=== PATIENT | female | born 1965 | race Caucasian/White ===

== ENCOUNTER → 2017-11-23 | Outpatient (CLI) | payer BC, OTHER ==
--- NOTE | 2017-11-27 07:51 | MM ---
Reason for exam: screening (asymptomatic). Last mammogram was performed 1 year and 6 months ago. History: Patient is postmenopausal. Family history of breast cancer in maternal grandmother at age 45 and breast cancer in maternal aunt at age 56. Benign stereotactic core biopsy of the left breast, March 18, 2005. Excisional biopsy of the right breast, 2003. Reductions of both breasts, March 1987. Core biopsy of the left breast. Took hormonal contraceptives for 5 years beginning at age 15. Physical Findings: A clinical breast exam by your physician is recommended on an annual basis and results should be correlated with mammographic findings. MG 3D Screening Mammo W/Cad Bilateral CC and MLO view(s) were taken. Prior study comparison: May 12, 2016, bilateral MG screening mammo w CAD. October 15, 2014, bilateral MG screening mammo w CAD. There are scattered fibroglandular densities. No significant changes when compared with prior studies. ASSESSMENT: Benign, BI-RAD 2 RECOMMENDATION: Routine screening mammogram of both breasts in 1 year.
== END | disposition home or self-care (01) ==
LOC: RADMAMWWP 16:16
PROVIDERS: ATTEND Family Medicine
DX: Z12.31 Encounter for screening mammogram for malignant neoplasm of breast (principal)
CPT/HCPCS: 77063; 77067

== ENCOUNTER → 2019-02-27 | Outpatient (CLI) | payer BC, OTHER ==
--- NOTE | 2019-03-01 10:06 | MM ---
Reason for exam: screening (asymptomatic). Last mammogram was performed 1 year and 3 months ago. History: Patient is postmenopausal. Family history of breast cancer in maternal grandmother at age 45 and breast cancer in maternal aunt at age 56. Benign stereotactic core biopsy of the left breast, March 18, 2005. Excisional biopsy of the right breast, 2003. Reductions of both breasts, March 1987. Core biopsy of the left breast. Took hormonal contraceptives for 5 years beginning at age 15. Physical Findings: A clinical breast exam by your physician is recommended on an annual basis and results should be correlated with mammographic findings. MG 3D Screening Mammo W/Cad Bilateral CC and MLO view(s) were taken. Prior study comparison: November 23, 2017, bilateral MG 3d screening mammo w/cad. May 12, 2016, bilateral MG screening mammo w CAD. The breast tissue is heterogeneously dense. This may lower the sensitivity of mammography. Previous mammotome biopsy in the left breast. No significant changes when compared with prior studies. ASSESSMENT: Benign, BI-RAD 2 RECOMMENDATION: Routine screening mammogram of both breasts in 1 year.
== END ==
LOC: RADMAMWWP 13:59
PROVIDERS: ATTEND Obstetrics & Gynecology
DX: Z12.31 Encounter for screening mammogram for malignant neoplasm of breast (principal)
CPT/HCPCS: 77063; 77067

== ENCOUNTER → 2019-03-28 | Outpatient (CLI) | payer BC ==
--- NOTE | 2019-03-28 11:27 | CT ---
EXAMINATION TYPE: CT abdomen pelvis w con DATE OF EXAM: 03/28/2019 COMPARISON: 07/23/2016 HISTORY: 53-year-old female Diverticulitis TECHNIQUE: Contiguous axial scanning of the abdomen and pelvis following administration of 100 ml Iso juan josé 300 IV contrast. Delayed images through the kidneys and coronal/sagittal reconstructions perform ed. CT DLP: 1475 mGycm Automated exposure control for dose reduction was used. FINDINGS: Heart normal size without pericardial effusion. Lung bases clear without pleural effusion. Scattered small hepatic cysts measuring up to 1.1 cm are redemonstrated. Portal venous system is funez nt. No biliary ductal dilatation. Gallbladder, adrenal glands, spleen, and pancreas appear within normal limits. Bilateral renal cysts measuring up to 4.1 cm on the right and 1.6 cm on the left. Symmetric uptake and excretion of contras t from both kidneys. No dilated small bowel, free fluid, or free air. No mesenteric or retroperitoneal lymphadenopathy. Normal appendix. Oral contrast progressed to the hepatic flexure of the colon. There is moderate stoo l burden. Sigmoid diverticulosis without pericolonic inflammatory change redundant sigmoid colon. Bladder is urine distended. Multiple pelvic phleboliths. Uterus and both ovaries are visualized. No a bnormal fluid collection in the pelvis or pelvic lymphadenopathy seen. Bones: Mild degenerative changes at the hips and SI joints. Disc/endplate degenerative change L5-S1 and facet arthropathy lower lumbar spine. IMPRESSION: 1. SIGMOID DIVERTICULOSIS WITHOUT EVIDENCE FOR ACUTE DIVERTICULITIS. 2. MODERATE STOOL BURDEN. 3. SCATTERED SMALL HEPATIC CYSTS AND BILATERAL RENAL CYSTS REDEMONSTRATED MEASURING UP TO 4.1 CM.
== END | disposition home or self-care (01) ==
LOC: RADCTMAIN 09:04
PROVIDERS: ATTEND Surgery Plastic and Reconstructive Surgery
DX: K57.30 Diverticulosis of large intestine without perforation or abscess without bleeding (principal); N28.1 Cyst of kidney, acquired; K76.89 Other specified diseases of liver; R19.5 Other fecal abnormalities; Z88.1 Allergy status to other antibiotic agents; Z88.2 Allergy status to sulfonamides
CPT/HCPCS: 74177; Q9967

== ENCOUNTER 2019-05-02 08:57 | Day surgery (SDC) | payer BC ==
[2019-04-26 15:15] VITALS: BMI 31.3
--- NOTE | 2019-05-02 07:58 | P.GSHP ---
History of Present Illness H&P Date: 05/02/19 CHIEF COMPLAINT: GERD HISTORY OF PRESENT ILLNESS: The patient is a 53-year-old female who presents reports gastroesophageal reflux disease. Upper endoscopy was offered for further evaluation and management. PAST MEDICAL HISTORY: Please see list. PAST SURGICAL HISTORY: Please see list. MEDICATIONS: Please see list. ALLERGIES: Please see list. SOCIAL HISTORY: No illicit drug use FAMILY HISTORY: No reports of Crohn disease or ulcerative colitis. REVIEW OF ORGAN SYSTEMS: CONSTITUTIONAL: No reports of fevers or chills. GI: Denies any blood in stools or constipation. PHYSICAL EXAM: VITAL SIGNS: Stable GENERAL: Well-developed and pleasant in no acute distress. HEENT: No scleral icterus. Extraocular movements grossly intact. Moist buccal mucosa. NECK: Supple without lymphadenopathy. CHEST: Unlabored respirations. Equal bilateral excursions. CARDIOVASCULAR: Regular rate and rhythm. Distal 2+ pulses. ABDOMEN: Soft, nondistended. MUSCULOSKELETAL: No clubbing, cyanosis, or edema. ASSESSMENT: 1. Gastroesophageal reflux disease PLAN: 1. Recommend proceeding with an upper endoscopy Past Medical History Past Medical History: Eye Disorder, Sleep Apnea/CPAP/BIPAP Additional Past Medical History / Comment(s): Abd. PAIN, HX OF ENDOMETRIOSIS AND HEMORRHOIDS, GLAUCOMA AND CATARACTS. NO LONGER USES CPAP MACHINE. History of Any Multi-Drug Resistant Organisms: None Reported Past Surgical History: Breast Surgery, Tonsillectomy, Tubal Ligation, Uterine Ablation Additional Past Surgical History / Comment(s): breast reduction, hemorroidectomy, carpal tunnel, eye surgery Past Anesthesia/Blood Transfusion Reactions: No Reported Reaction Additional Past Anesthesia/Blood Transfusion Reaction / Comment(s): . Past Psychological History: Anxiety, Depression Additional Psychological History / Comment(s): ON CELEXA FOR POST-MENOPAUSE ISSUES. Smoking Status: Never smoker Past Alcohol Use History: Rare Past Drug Use History: None Reported - Past Family History Father Family Medical History: Cancer Additional Family Medical History / Comment(s): BLADDER CA. Sister(s) Family Medical History: Cancer Additional Family Medical History / Comment(s): NON-HODGKINS LYMPHOMA AND LARGE B CELL. Medications and Allergies Home Medications Medication Instructions Recorded Confirmed Type Citalopram Hydrobromide [CeleXA] 20 mg PO DAILY 09/02/16 04/26/19 History Timolol 0.25% Ophth Soln [Timoptic 1 drop BOTH EYES DAILY 04/10/19 04/26/19 History 0.25% Ophth Soln] Allergies Allergy/AdvReac Type Severity Reaction Status Date / Time levofloxacin [From Levaquin] Allergy Rash/Hives, Verified 04/26/19 14:59 palpations
[~2019-05-02 08:57] MED LIST: LACTATED RINGERS 1,000 ML IV SCH; LIDOCAINE 1% 20 ML VIAL (10MG/ML) FOR IV START INTRADERMA PRN
[2019-05-02 09:18] VITALS: RESP 16; TEMP 97
[2019-05-02] MEDS ORDERED: LIDOCAINE 1% INJ 10MG/ML (20 ML MDV) ONE (10:33)
[2019-05-02] MEDS ORDERED: PROPOFOL 10 MG/ML 20 ML VIAL IV ONE (10:33)
--- NOTE | 2019-05-02 11:16 | P.PCN ---
Date of Procedure: 05/02/19 Description of Procedure: PREOPERATIVE DIAGNOSIS: Gastroesophageal reflux disease. POSTOPERATIVE DIAGNOSIS: Gastritis. Gastroesophageal reflux disease with erosive esophagitis Diaphragmatic hiatal hernia Duodenitis Gastric polyps, benign OPERATION: Esophagogastroduodenoscopy with biopsies along antrum, duodenum, distal esophagus SURGEON: Malou Tipton MD ANESTHESIA: MAC. INDICATIONS: The patient is a 53-year-old female who presents with a history of reflux disease. Benefits and risks of the procedure were described. Informed consent was obtained. DESCRIPTION: The patient was brought into the endoscopy suite and laid in the left lateral decubitus position. An Olympus gastroscope was passed along the posterior oropharynx down to the distal esophagus where the squamocolumnar junction was encountered at 38 cm from the incisors. The stomach was entered and no bile reflux was found. Additional findings are listed below. Biopsies with cold forceps were obtained of the antrum. The first through third portion of the duodenum was examined and with duodenitis. Retroflexion of the scope confirmed Hill grade 3 lower esophageal valve. The squamocolumnar junction demonstrated LA grade B erosive esophagitis. The stomach was desufflated. The patient tolerated the procedure well. FINDINGS: Squamocolumnar junction 38 cm from the incisors. Diaphragmatic hiatus at 40 cm. Hiatal hernia, 2 cm Hill grade 3 lower esophageal valve. LA grade B erosive esophagitis with biopsies obtained Active duodenitis with biopsies obtained Chronic gastritis with biopsies obtained Gastric polyps, benign fundus RECOMMENDATIONS: Upper endoscopy as needed. Start proton pump inhibitor Plan - Discharge Summary New Discharge Prescriptions: No Action Citalopram Hydrobromide [CeleXA] 20 mg PO DAILY Timolol 0.25% Ophth Soln [Timoptic 0.25% Ophth Soln] 1 drop BOTH EYES DAILY Discharge Medication List Citalopram Hydrobromide [CeleXA] 20 mg PO DAILY 09/02/16 [History] Timolol 0.25% Ophth Soln [Timoptic 0.25% Ophth Soln] 1 drop BOTH EYES DAILY 04/10/19 [History]
[2019-05-02 11:46] VITALS: BP 123/76; PULSE 66
== END 2019-05-02 11:28 | disposition home or self-care (01) ==
LOC: ORWHC2ENDO 08:57
PROVIDERS: ATTEND Surgery Plastic and Reconstructive Surgery
DX: K21.0 Gastro-esophageal reflux disease with esophagitis (principal); K29.50 Unspecified chronic gastritis without bleeding; K29.80 Duodenitis without bleeding; K31.7 Polyp of stomach and duodenum; K44.9 Diaphragmatic hernia without obstruction or gangrene; Z80.52 Family history of malignant neoplasm of bladder; Z80.7 Family history of other malignant neoplasms of lymphoid, hematopoietic and related tissues; Z79.899 Other long term (current) drug therapy; Z88.1 Allergy status to other antibiotic agents
CPT/HCPCS: 88305; 43239; J2001; J2704

== ENCOUNTER → 2019-05-09 | Outpatient (CLI) | payer BC ==
[2019-05-09 13:25] LABS: HGB 13.2 gm/dL (11.4-16.0); MCH 28.7 pg (25.0-35.0); MCHC 32.9 g/dL (31.0-37.0); MCV 87.2 fL (80.0-100.0); Mean Platelet Volume 8.5; Platelet Count 209 k/uL (150-450); RBC 4.58 m/uL (3.80-5.40); RDW 14.2 % (11.5-15.5); WBC 6.7 k/uL (3.8-10.6)
[2019-05-09 13:34] LABS: Albumin 4.5 g/dL (3.5-5.0); Calcium 9.8 mg/dL (8.4-10.2); Potassium 4.9 mmol/L (3.5-5.1); Total Protein 7.4 g/dL (6.3-8.2)
== END | disposition home or self-care (01) ==
LOC: LABWHC1 12:29 → LABPAT 12:29
PROVIDERS: ATTEND Surgery Plastic and Reconstructive Surgery
DX: K63.5 Polyp of colon (principal); D12.0 Benign neoplasm of cecum
CPT/HCPCS: 80053; 85027

== ENCOUNTER 2019-05-13 08:23 | Inpatient (IN) | payer BC ==
[2019-05-08 15:53] VITALS: BMI 31.3
[~2019-05-13 08:23] MED LIST changes: +ALVIMOPAN 12 MG CAPSULE PO ONE; +Antibiotics per Pharmacy 1 EACH MISC MISCELLANE PRN; +DEXAMETHASONE SOD PHOSPHATE 10 MG/ML 1 ML VIAL IV ONE; +HEPARIN SODIUM,PORCINE 5,000 UNIT/ML 1 ML VIAL SQ ONE; -LACTATED RINGERS 1,000 ML IV SCH; +ONDANSETRON 4 MG/2 ML VIAL IVP ONE; +ONDANSETRON 4 MG/2 ML VIAL IVP PRN; +SCOPOLAMINE 1.5MG/72HR PATCH TRANSDERM ONE; +metroNIDAZOLE-NS PMX 500 MG in SALINE 1 100ML.BAG IVPB ONE
[2019-05-13] MEDS: LACTATED RINGERS 1,000 ML IV SCH (09:41)
--- NOTE | 2019-05-13 09:48 | P.GSHP ---
History of Present Illness H&P Date: 05/13/19 CHIEF COMPLAINT: History of cecal adenoma, recurrent unresectable HISTORY OF PRESENT ILLNESS: The patient is a 53-year-old female who comes in with recurrent unresectable cecal adenoma. She now presents for cecal resection/right hemicolectomy. PAST MEDICAL HISTORY: Please see list. PAST SURGICAL HISTORY: Please see list. MEDICATIONS: Please see list. ALLERGIES: Please see list. SOCIAL HISTORY: No illicit drug use FAMILY HISTORY: No reports of Crohn disease or ulcerative colitis. REVIEW OF ORGAN SYSTEMS: CONSTITUTIONAL: Denies any fever or chills. HEENT: Denies any trouble with vision or nosebleeds. No difficulty swallowing. She is hard of hearing. LYMPHATIC: The patient denies any lumps and bumps around the neck. ENDOCRINE: Denies any thyroid disorders. Has blood sugar glucose intolerance. RESPIRATORY: Denies pneumonia. Denies any troubles with breathing or dyspnea on exertion. CARDIOVASCULAR: Denies any chest pain, palpitations, or recent heart attacks. GASTROINTESTINAL: Has constipation GENITOURINARY: Has increased urinary frequency. MUSCULOSKELETAL: Has back pain, stiffness, joint arthritis. NEUROLOGIC: Denies any numbness or tingling along the distal extremities. No seizure disorders or headaches. PSYCHIATRIC: Denies depression or suidical ideation. HEMATOLOGIC: Denies any abnormal bleeding or bruising. PHYSICAL EXAM: VITAL SIGNS: Stable GENERAL: Well-developed pleasant in no acute distress. HEENT: No scleral icterus. Extraocular movements grossly intact. Moist buccal mucosa. He is hard of hearing. NECK: Supple without lymphadenopathy. CHEST: Unlabored respirations. Equal bilateral excursions. CARDIOVASCULAR: Regular rate and rhythm. Distal 2+ pulses. ABDOMEN: Soft, nontender, nondistended. MUSCULOSKELETAL: No clubbing, cyanosis, or edema. NERUO: Regular 2-12 grossly intact. PSYCH: Alert and oriented to person place and time. ASSESSMENT: 1. History of recurrent unresectable cecal adenoma PLAN: 1. Benefits and risks of surgical right hemicolectomy. Robotic-assisted approach was also described. 2. She has completed an enhanced colon recovery program. 3. DVT prophylaxis. 4. Antibiotic prophylaxis. Past Medical History Past Medical History: Dementia, Eye Disorder, GERD/Reflux, Sleep Apnea/CPAP/BIPAP Additional Past Medical History / Comment(s): colon mass,hiatal hernia,duodenitis,gastritis,diverticulosisHX OF ENDOMETRIOSIS, HEMORRHOIDS, GLAUCOMA AND CATARACTS. NO LONGER USES CPAP MACHINE. History of Any Multi-Drug Resistant Organisms: None Reported Past Surgical History: Breast Surgery, Tonsillectomy, Tubal Ligation, Uterine Ablation Additional Past Surgical History / Comment(s): breast reduction, hemorroidectomy, carpal tunnel, eye surgery Past Anesthesia/Blood Transfusion Reactions: No Reported Reaction Additional Past Anesthesia/Blood Transfusion Reaction / Comment(s): NO PROBLEMS WITH PRIOR AUTOLOGEOUS BLOOD Smoking Status: Never smoker - Past Family History Father Family Medical History: Cancer Additional Family Medical History / Comment(s): BLADDER CA. Sister(s) Family Medical History: Cancer Additional Family Medical History / Comment(s): NON-HODGKINS LYMPHOMA AND LARGE B CELL. Medications and Allergies Home Medications Medication Instructions Recorded Confirmed Type Citalopram Hydrobromide [CeleXA] 20 mg PO QAM 09/02/16 05/08/19 History Timolol 0.25% Ophth Soln [Timoptic 1 drop BOTH EYES QAM 04/10/19 05/08/19 History 0.25% Ophth Soln] Omeprazole 40 mg PO QAM 05/08/19 05/08/19 History Allergies Allergy/AdvReac Type Severity Reaction Status Date / Time levofloxacin [From Levaquin] Allergy Rash/Hives, Verified 05/13/19 09:44 palpations Surgical - Exam Vital Signs Temp Pulse Resp BP Pulse Ox 98.0 F 69 18 123/62 96 05/13/19 09:18 05/13/19 09:18 05/13/19 09:18 05/13/19 09:18 05/13/19 09:18
[2019-05-13] MEDS ORDERED: MIDAZOLAM (PF) 2 MG/2 ML VIAL IVP ONE (09:49)
[2019-05-13 09:52] LABS: Basophils % (A) 1 %; Eosinophils # (A) 0.1 k/uL (0-0.7); Eosinophils % (A) 3 %; HCT 38.4 % (34.0-46.0); Lymphocytes # (A) 1.4 k/uL (1.0-4.8); Lymphocytes % (A) 30 %; MCHC 33.8 g/dL (31.0-37.0); MCV 85.6 fL (80.0-100.0); Mean Platelet Volume 8.4; Monocytes # (A) 0.2 k/uL (0-1.0); Monocytes % (A) 5 %; Neutrophils # (A) 2.7 k/uL (1.3-7.7); Neutrophils % (A) 60 %; Platelet Count 213 k/uL (150-450); RBC 4.48 m/uL (3.80-5.40); RDW 15.4 % (11.5-15.5); WBC 4.6 k/uL (3.8-10.6)
[2019-05-13 10:01] LABS: Albumin 4.7 g/dL (3.5-5.0); Calcium 9.4 mg/dL (8.4-10.2); Potassium 3.9 mmol/L (3.5-5.1); Total Bilirubin 0.9 mg/dL (0.2-1.3); Total Protein 7.8 g/dL (6.3-8.2)
[2019-05-13] MEDS ORDERED: FAMOTIDINE 20 MG/2 ML VIAL IVP ONE (10:03)
[2019-05-13] MEDS ORDERED: fentaNYL (PF) 50 MCG/ML 2 ML AMP ONE (10:57)
[2019-05-13] MEDS ORDERED: PROPOFOL 10 MG/ML 20 ML VIAL IV ONE (10:57)
[2019-05-13] MEDS ORDERED: ROCURONIUM BROMIDE 10 MG/ML 10 ML VIAL IV ONE (10:57)
[2019-05-13] MEDS ORDERED: LIDOCAINE 1% INJ 10MG/ML (20 ML MDV) ONE (10:57)
[2019-05-13] MEDS ORDERED: SUCCINYLCHOLINE CHLORIDE 100 MG/5 ML SYR IV ONE (10:57)
[2019-05-13] MEDS ORDERED: GLYCOPYRROLATE 0.2 MG/ML 2 ML VIAL ONE (10:57)
[2019-05-13] MEDS ORDERED: NEOSTIGMINE 1 MG/ML 10 ML VIAL ONE (10:57)
[2019-05-13] MEDS ORDERED: MIDAZOLAM 2 MG/2 ML VIAL ONE (10:57)
[2019-05-13] MEDS ORDERED: NALOXONE 0.4 MG/ML 1 ML VIAL IV PRN (11:07)
[2019-05-13] MEDS ORDERED: ROPIVACAINE 250 MG, HYDROMORPHONE (PF) 5 MG in SODIUM CHLORIDE 0.9% 200 ML EPIDURAL PRN (11:15)
[2019-05-13] MEDS ORDERED: BUPIVACAIN-EPI 0.25%-1:200,000 30 ML VIAL SQ ONE (11:28)
--- NOTE | 2019-05-13 13:51 | P.OP ---
Date of Procedure: 05/13/19 Description of Procedure: SURGEON: DILLON TIDWELL MD Preoperative Diagnosis: 1. Recurrent cecal adenoma unresectable by endoscopic techniques 2. Depressive disorder 3. Gastroesophageal reflux disease 4. Hiatal hernia 5. Obstructive sleep apnea 6. History of endometriosis 7. Sigmoid diverticulosis Postoperative Diagnosis: 1. Recurrent cecal adenoma unresectable by endoscopic techniques 2. Depressive disorder 3. Gastroesophageal reflux disease 4. Hiatal hernia 5. Obstructive sleep apnea 6. History of endometriosis 7. Sigmoid diverticulosis 8. Cecal bascule Procedure(s) Performed: Robot-assisted daVinci Xi laparoscopic right hemicolectomy Anesthesia: GETA, local, epidural Estimated Blood Loss (ml): 5 Pathology: other (Right colon) Condition: stable SPECIMENS REMOVED: terminal ileum, appendix, and right colon en bloc. COMPLICATIONS: None. Disposition: floor Operative Findings: 1. Highly redundant right colon with resection performed for cecal adenoma INDICATIONS: The patient is a 54-year-old female with personal history of recurrent cecal adenoma. Surgical intervention with colon resection was described in detail. Benefits and risks, including infection, open surgery possibility for additional surgery was discussed at length. Informed consent was obtained. All questions of the patient and family were answered. DESCRIPTION: Earlier the patient had undergone a bowel prep using the enhanced colon recovery program. An epidural was placed per anesthesia. The patient was transferred to the operating room and placed in supine position. After general anesthetic, a eastman catheter was placed. The abdomen was then prepped and draped in standard sterile fashion as Ioban was placed along the abdomen to minimize any contamination of skin floor. After a timeout protocol was performed, attention was then brought to the left upper quadrant whereby a 0 degree 5 mm laparoscopic trocar entry was performed. The abdominal cavity was entered and insufflated to 15 mmHg pressure, which was tolerated well. Diagnostic laparoscopy demonstrated no injury to bowel, viscera or mesentery. No metastatic or peritoneal deposits were identified. The liver was unremarkable. Next a robotic 12-mm trocar was placed along the right lateral abdominal wall, 15-cm superior from the pelvis. An 8 mm port was placed along the right upper quadrant and another 8-mm port along the epigastrium. Another 8 mm port was placed along the left lower quadrant. Ports were placed 8 cm apart from each other including 15-20 cm away from the target anatomy of the right pelvis. The patient was then placed in Trendelenburg position, at least 16. The robotic da Lizbeth XI system was primed and docked from the left side of the patient. Using atraumatic graspers and vessel sealer, the robotic system was docked and primed as described. Instruments were interchanged by the anesthetic assistant including ho ok cautery, needle charter bus driver, robotic stapler and vessel sealer. Next, attention was brought to identify the cecum. A stay suture using 0 silk was placed along the anterior serosa of the ascending colon including along the terminal ileum. The appendix was identified and used as a handle during the case. The terminal ileum and ascending colon mesentery was mobilized using a vessel sealer whereby the colon was marked and tagged. Using robot stapler 60 mm blue load, the distal ileum was divided 5 cm proximal to the ileocecal valve. The mesentery of the ascending colon was mobilized towards the midline using a vessel sealer. Next, the ascending colon was divided using the robotic stapler 60 mm green loads. The rest of the colon mesentery was mobilized using vessel sealer including using blunt dissection. The vascular pedicle of the ileocolic artery was controlled using a vessel sealer. The proximal colon and distal ileum was brought in a side to side isoperistaltic anastomotic fashion after placing interrupted sutures along the proposed brionna- lumen using 3-0 silk. A colotomy and enterotomy was prepared along both limbs along the antimesenteric border. Next, 60 mm blue stapler loads were fired to create the brionna-lumen. The brionna-lumen was reapproximated using 3-0 silk followed by 45 mm green load for closure of the enterostomy. All needles were removed from the abdominal cavity. The robot was undocked. I re-scrubbed into the case. Via the left upper quadrant, the right colon was removed using a 15-mm Endo Catch bag after widening the skin incision to 3-cm. All sponges were removed from the abdominal cavity. No contamination had occurred throughout this portion of the case. The fascial defect was oversewn using 0 Vicryl and Lizzie's including Phil-Sheng. Next all pneumoperitoneum was evacuated from the abdominal cavity. The 8-mm trocar sites were reapproximated using 4-0 Monocryl in an interrupted subcuticular fashion. Local anesthetic was infiltrated to all wounds for postop analgesia. All incisions were also cleansed with diluted hydrogen peroxide. An Optifoam surgical dressing was placed over the left upper quadrant incision of the colon extraction site. Exofin glue was applied to the rest of the skin incisions. The patient had tolerated the procedure well. The patient was extubated successfully. Intraoperative photos were reviewed with the patient's family who were overall pleased with the level of care. The patient was transferred to the postanesthesia care unit in stable condition.
[2019-05-13] MEDS ORDERED: SODIUM CHLORIDE 0.9% 1,000 ML with POTASSIUM CHLORIDE 40 MEQ IV SCH ×2 (14:00)
[2019-05-13] MEDS: HYDROmorphone 0.5 MG/0.5 ML SYRINGE IVP PRN ×2 (14:07→14:19)
[2019-05-13] MEDS: KETOROLAC 30 MG/ML 1 ML VIAL IVP SCH ×2 (15:36→18:12)
[2019-05-13] MEDS: 0.9% NACL WITH KCL 40 MEQ/L 1,000 ML IV SCH (16:01)
[2019-05-13] MEDS: ONDANSETRON 4 MG/2 ML VIAL IVP SCH ×2 (16:01→20:35)
[2019-05-13] MEDS: METOCLOPRAMIDE 5 MG/ML 2 ML VIAL IVP SCH (18:13)
[2019-05-13] MEDS: metroNIDAZOLE-NS PMX 500 MG in SALINE 1 100ML.BAG IVPB SCH (18:13)
[2019-05-13] MEDS: HEPARIN SODIUM,PORCINE 5,000 UNIT/ML 1 ML VIAL SQ SCH (20:36)
[2019-05-13] MEDS: FAMOTIDINE 20 MG/2 ML VIAL IV SCH (20:36)
[2019-05-14] MEDS: KETOROLAC 30 MG/ML 1 ML VIAL IVP SCH ×5 (00:16→23:21)
[2019-05-14] MEDS: METOCLOPRAMIDE 5 MG/ML 2 ML VIAL IVP SCH ×5 (01:01→23:20)
[2019-05-14] MEDS: ONDANSETRON 4 MG/2 ML VIAL IVP SCH ×5 (01:01→23:21)
[2019-05-14] MEDS: 0.9% NACL WITH KCL 40 MEQ/L 1,000 ML IV SCH ×3 (01:02→20:11)
[2019-05-14] MEDS: metroNIDAZOLE-NS PMX 500 MG in SALINE 1 100ML.BAG IVPB SCH ×3 (01:45→12:54)
[2019-05-14] MEDS: LACTATED RINGERS 1,000 ML IV SCH (04:56)
[2019-05-14 07:10] LABS: Basophils % (A) 0 %; Eosinophils % (A) 0 %; HGB 11.5 gm/dL (11.4-16.0); Lymphocytes # (A) 0.9 k/uL (1.0-4.8); Lymphocytes % (A) 10 %; MCHC 32.8 g/dL (31.0-37.0); MCV 88.3 fL (80.0-100.0); Monocytes # (A) 0.4 k/uL (0-1.0); Monocytes % (A) 5 %; Neutrophils % (A) 85 %; Platelet Count 170 k/uL (150-450); RBC 3.96 m/uL (3.80-5.40); RDW 14.1 % (11.5-15.5); WBC 9.4 k/uL (3.8-10.6)
[2019-05-14 07:30] LABS: Calcium 8.2 mg/dL (8.4-10.2); Potassium 3.9 mmol/L (3.5-5.1)
--- NOTE | 2019-05-14 08:25 | P.PN ---
Progress Note - Text 05/14/2019 84-year-old female status post coronary resection by Dr. Tipton. Patient has an epidural for postop pain control with the solution running at 5 mL an hour and a VAS of 1. She has little bit of numbness in her left hip so I asked the nurse or decrease the rate to 4 mL an hour. Plan to continue epidural infusion rate at 4 mL an hour
[2019-05-14] MEDS: FAMOTIDINE 20 MG/2 ML VIAL IV SCH ×2 (08:38→20:11)
[2019-05-14] MEDS: ALVIMOPAN 12 MG CAPSULE PO SCH ×2 (08:38→20:11)
[2019-05-14] MEDS: TIMOLOL 0.25% OPHTH DROPS 5 ML BTL BOTH EYES SCH (08:39)
[2019-05-14] MEDS ORDERED: SODIUM CHLORIDE 0.9% 1,000 ML IV ONE (08:43)
--- NOTE | 2019-05-14 12:57 | P.PN ---
<Myriam Marin [place] - Last Filed: 05/14/19 12:51> Subjective Progress Note Date: 05/14/19 CHIEF COMPLAINT: recurrent cecal adenoma HISTORY OF PRESENT ILLNESS: Patient is status post robotic right hemicolectomy secondary to cecal adenoma. POD #1. Patient reports pain is tolerable this morning. epidural infusing at 4 mL an hour. denies passing flatus. tolerating clear liquid diet. Dahl catheter with jorge urine. IV fluids infusing at 100 mL an hour. Systolic blood pressure in the 90s this morning. WBC 9.4. Hemoglobin 11.5. PHYSICAL EXAM: VITAL SIGNS: Reviewed GENERAL: Well-developed in no acute distress. HEENT: No sclera icterus. Extraocular movements grossly intact. Moist buccal mucosa. Head is atraumatic, normocephalic. Hears conversational speech. No nasal drainage. NECK: Supple without lymphadenopathy. CHEST: Non-labored respirations and equal bilateral excursions. CARDIOVASCULAR: Regular rate with regular rhythm. Palpable 2+ radial pulses. ABDOMEN: Soft. Nondistended. Surgical incision sites clean dry and intact without erythema or drainage. Hypoactive bowel sounds. MUSCULOSKELETAL: No clubbing, cyanosis or edema. NEUROLOGIC: No focal or lateralizing signs. Cranial nerves II through XII grossly intact. PSYCH: Appropriate affect. Alert and oriented to person, place and time. SKIN: Well perfused. Good skin turgor. ASSESSMENT: 1. Cecal adenoma, s/p robotic right hemicolectomy PLAN: 1. Continue epidural for pain control 2. Continue Dahl catheter 3. Continue IV fluids at 100 mL an hour. 1 L normal saline bolus secondary to jorge urine 4. Continue clear liquid diet until patient begins passing flatus 5. Incentive spirometer 10 times an hour while awake 5. Activity as tolerated. Patient encouraged to be out of bed and ambulatory Nurse practitioner note has been reviewed by physician. Signing provider agrees with the documented findings, assessment, and plan of care. Objective - Vital Signs Vital signs: Vital Signs Temp 98.4 F 05/14/19 07:00 Pulse 93 05/14/19 07:00 Resp 16 05/14/19 07:00 BP 90/57 05/14/19 07:00 Pulse Ox 96 05/14/19 07:00 Intake & Output 05/13/19 05/14/19 05/14/19 18:59 06:59 18:59 Intake Total 1400 34.7 Output Total 5 700 Balance 1395 -665.3 Intake: IV 1400 Intake, IV Titration 34.7 Amount Ropivacaine 250 mg 34.7 Hydromorphone (Pf) 5 mg In Sodium Chloride 0.9% 200 ml @ Per Protocol EPIDURAL .Q0M PRN Rx#: [id number] Output: Urine 700 Estimated Blood Loss 5 Other: Voiding Method Indwelling Catheter Indwelling Catheter Indwelling Catheter - Labs CBC & Chem 7: 05/14/19 06:35 05/14/19 06:35 Labs: Abnormal Lab Results - Last 24 Hours (Table) 05/14/19 05/14/19 Range/Units 06:35 06:35 Neutrophils # 8.0 H (1.3-7.7) k/uL Lymphocytes # 0.9 L (1.0-4.8) k/uL Carbon Dioxide 31 H (22-30) mmol/L Calcium 8.2 L (8.4-10.2) mg/dL <Malou Tipton N - Last Filed: 05/16/19 18:33> Objective - Vital Signs Vital signs: Vital Signs Temp 98 F 05/15/19 15:00 Pulse 71 05/15/19 15:00 Resp 12 05/15/19 15:00 BP 146/83 05/15/19 15:00 Pulse Ox 97 05/15/19 15:00 Intake & Output 05/15/19 05/16/19 05/16/19 18:59 06:59 18:59 Intake Total 2000 Output Total 2800 Balance -800 Intake: IV 800 0.9% NaCl with KCl 40 Meq 800 /l 1,000 ml @ 100 mls/hr IV .[facility] Rx#: [id number] Oral 1200 Output: Urine 2800 Uretheral (Dahl) 2500 Other: Voiding Method Toilet - Labs CBC & Chem 7: 05/15/19 06:57 05/15/19 06:57
[2019-05-14] MEDS: HEPARIN SODIUM,PORCINE 5,000 UNIT/ML 1 ML VIAL SQ SCH ×2 (15:38→20:11)
[2019-05-15] MEDS: LACTATED RINGERS 1,000 ML IV SCH (05:49)
[2019-05-15] MEDS: KETOROLAC 30 MG/ML 1 ML VIAL IVP SCH (05:49)
[2019-05-15] MEDS: ONDANSETRON 4 MG/2 ML VIAL IVP SCH ×3 (05:50→18:03)
[2019-05-15] MEDS: METOCLOPRAMIDE 5 MG/ML 2 ML VIAL IVP SCH ×3 (05:50→18:02)
[2019-05-15] MEDS: 0.9% NACL WITH KCL 40 MEQ/L 1,000 ML IV SCH ×2 (05:51→12:17)
[2019-05-15 07:41] LABS: Basophils % (A) 0 %; Eosinophils # (A) 0.1 k/uL (0-0.7); Eosinophils % (A) 1 %; HCT 33.4 % (34.0-46.0); HGB 10.8 gm/dL (11.4-16.0); Lymphocytes # (A) 1.2 k/uL (1.0-4.8); Lymphocytes % (A) 21 %; MCH 28.6 pg (25.0-35.0); MCHC 32.3 g/dL (31.0-37.0); MCV 88.7 fL (80.0-100.0); Monocytes # (A) 0.3 k/uL (0-1.0); Monocytes % (A) 6 %; Neutrophils # (A) 4.1 k/uL (1.3-7.7); Neutrophils % (A) 71 %; Platelet Count 147 k/uL (150-450); RBC 3.77 m/uL (3.80-5.40); RDW 14.1 % (11.5-15.5); WBC 5.8 k/uL (3.8-10.6)
[2019-05-15 08:07] VITALS: RESP 12
[2019-05-15 08:11] LABS: African American GFR (CKD) >90 (>60 ml/min/1.73 sqM); Anion Gap 4 mmol/L; Blood Urea Nitrogen 8 mg/dL (7-17); Calcium 8.4 mg/dL (8.4-10.2); Carbon Dioxide 28 mmol/L (22-30); Chloride 106 mmol/L (98-107); Glucose 90 mg/dL (74-99); Potassium 4.6 mmol/L (3.5-5.1); Sodium 138 mmol/L (137-145)
--- NOTE | 2019-05-15 08:59 | P.PN ---
Progress Note - Text Progress Note Date: 05/15/19 Postoperative day #2 status post right hemicolectomy/epidural catheter placed for postoperative analgesia, patient doing well epidural site okay, patient currently on combination of epidural infusion solution of Ropivacaine ,and Dilaudid 20 g per mL the infusion rate at 4 ml per hour , patient had no motor deficit epidural site okay , vital signs stable ,VAS 0 /10 , Assessment and plan= post operative day #2 patient doing well ,pain well controlled , there is no anesthesia related complications
[2019-05-15] MEDS: HEPARIN SODIUM,PORCINE 5,000 UNIT/ML 1 ML VIAL SQ SCH (09:04)
[2019-05-15] MEDS: ALVIMOPAN 12 MG CAPSULE PO SCH (09:14)
[2019-05-15] MEDS: FAMOTIDINE 20 MG/2 ML VIAL IV SCH (09:14)
[2019-05-15] MEDS: TIMOLOL 0.25% OPHTH DROPS 5 ML BTL BOTH EYES SCH (09:14)
[2019-05-15] MEDS ORDERED: HYDROmorphone 0.5 MG/0.5 ML SYRINGE IVP PRN (10:53)
[2019-05-15] MEDS ORDERED: HYDROcodone/APAP 5-325MG 1 EACH TAB PO PRN (10:54)
--- NOTE | 2019-05-15 15:01 | P.DS ---
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 Patient is doing well postoperatively. She is tolerating liquids and passing flatus. Pain is controlled. Vital signs have been stable. She is stable for discharge home today. Please see EMR for further hospital course details. Discharge Diagnosis: 1. Cecal adenoma, s/p robotic right hemicolectomy Nurse practitioner note has been reviewed by physician. Signing provider agrees with the documented findings, assessment, and plan of care. Patient Condition at Discharge: Stable Plan - Discharge Summary Discharge Rx Participant: No New Discharge Prescriptions: New Hydrocodone/Acetaminophen [[place] 5-325] 1 tab PO Q4HR PRN 3 Days #18 tab PRN Reason: Pain Continue Citalopram Hydrobromide [CeleXA] 20 mg PO QAM Timolol 0.25% Ophth Soln [Timoptic 0.25% Ophth Soln] 1 drop BOTH EYES QAM Omeprazole 40 mg PO QAM Discharge Medication List Citalopram Hydrobromide [CeleXA] 20 mg PO QAM 09/02/16 [History] Timolol 0.25% Ophth Soln [Timoptic 0.25% Ophth Soln] 1 drop BOTH EYES QAM 04/10/19 [History] Omeprazole 40 mg PO QAM 05/08/19 [History] Hydrocodone/Acetaminophen [[place] 5-325] 1 tab PO Q4HR PRN 3 Days #18 tab 05/15/19 [Rx] Follow up Appointment(s)/Referral(s): Malou Tipton MD [STAFF PHYSICIAN] - 1 Week Patient Instructions/Handouts: Colectomy (DC), Full Liquid Diet (DC) Care Plan Goals (MU): continue full liquid diet Discharge Disposition: HOME SELF-CARE <Malou Tipton - Last Filed: 05/16/19 18:33> Providers Date of admission: 05/13/19 08:23 Attending physician: Malou Tipton Primary care physician: Ajit Ochoa
[2019-05-15 15:26] VITALS: BP 146/83; PULSE 71; TEMP 98
== END 2019-05-15 19:46 | disposition home or self-care (01) | DRG 330 ==
LOC: 2ORMAIN 08:23 → 4SSUR 14:40
PROVIDERS: ADMIT Surgery Plastic and Reconstructive Surgery; ATTEND Surgery Plastic and Reconstructive Surgery
PROC: 0DTF4ZZ Resection of Right Large Intestine, Percutaneous Endoscopic Approach (ICD-10-PCS; principal; 2019-05-13 10:00)
PROC: 8E0W4CZ Robotic Assisted Procedure of Trunk Region, Percutaneous Endoscopic Approach (ICD-10-PCS; principal; 2019-05-13 10:00)
DX: D12.0 Benign neoplasm of cecum (principal); Q43.8 Other specified congenital malformations of intestine; F03.90 Unspecified dementia, unspecified severity, without behavioral disturbance, psychotic disturbance, mood disturbance, and anxiety; G47.30 Sleep apnea, unspecified; H40.9 Unspecified glaucoma; K21.9 Gastro-esophageal reflux disease without esophagitis; Z80.52 Family history of malignant neoplasm of bladder; Z80.7 Family history of other malignant neoplasms of lymphoid, hematopoietic and related tissues; Z99.89 Dependence on other enabling machines and devices; Z98.42 Cataract extraction status, left eye; Z98.41 Cataract extraction status, right eye; Z98.890 Other specified postprocedural states; Z98.51 Tubal ligation status; Z90.89 Acquired absence of other organs; Z88.1 Allergy status to other antibiotic agents
CPT/HCPCS: 80048; 80053; 85025; 86850; 86900; 86901; 88309

== ENCOUNTER → 2020-06-04 | Outpatient (CLI) | payer BC ==
--- NOTE | 2020-06-10 09:22 | MM ---
Reason for exam: screening (asymptomatic). Last mammogram was performed 1 year and 3 months ago. History: Patient is postmenopausal. Family history of breast cancer in maternal grandmother at age 45 and breast cancer in maternal aunt at age 56. Benign stereotactic core biopsy of the left breast, March 18, 2005. Excisional biopsy of the right breast, 2003. Reductions of both breasts, March 1987. Core biopsy of the left breast. Took hormonal contraceptives for 5 years beginning at age 15. Physical Findings: A clinical breast exam by your physician is recommended on an annual basis and results should be correlated with mammographic findings. MG 3D Screening Mammo W/Cad Bilateral CC and MLO view(s) were taken. XCCL view(s) were taken of the left breast. Prior study comparison: February 27, 2019, bilateral MG 3d screening mammo w/cad. November 23, 2017, bilateral MG 3d screening mammo w/cad. There are scattered fibroglandular densities. Finding: There are typically benign skin calcifications in both breasts. Biopsy clip left breast. No significant changes in finding since February 27, 2019 and November 23, 2017. ASSESSMENT: Benign, BI-RAD 2 RECOMMENDATION: Routine screening mammogram of both breasts in 1 year.
== END | disposition home or self-care (01) ==
LOC: RADMAMWWP 15:58
PROVIDERS: ATTEND Family Medicine
DX: Z12.31 Encounter for screening mammogram for malignant neoplasm of breast (principal)
CPT/HCPCS: 77063; 77067

== ENCOUNTER 2020-07-08 09:47 | Day surgery (SDC) | payer BC ==
[2020-07-06 17:24] VITALS: BMI 31.9
--- NOTE | 2020-07-08 06:31 | P.GSHP ---
History of Present Illness H&P Date: 07/08/20 CHIEF COMPLAINT: Colon screen HISTORY OF PRESENT ILLNESS: The patient is a 55-year-old female who presents for colon screen. Lower endoscopy was offered for further evaluation and management. PAST MEDICAL HISTORY: Please see list. PAST SURGICAL HISTORY: Please see list. MEDICATIONS: Please see list. ALLERGIES: Please see list. SOCIAL HISTORY: No illicit drug use FAMILY HISTORY: No reports of Crohn disease or ulcerative colitis. REVIEW OF ORGAN SYSTEMS: CONSTITUTIONAL: No reports of fevers or chills. PHYSICAL EXAM: VITAL SIGNS: Stable GENERAL: Well-developed pleasant in no acute distress. HEENT: No scleral icterus. Extraocular movements grossly intact. Moist buccal mucosa. NECK: Supple without lymphadenopathy. CHEST: Unlabored respirations. Equal bilateral excursions. CARDIOVASCULAR: Regular rate and rhythm. Distal 2+ pulses. ABDOMEN: Soft, nontender, nondistended. MUSCULOSKELETAL: No clubbing, cyanosis, or edema. ASSESSMENT: 1. Colon screen. PLAN: 1. Recommend proceeding with a lower endoscopy Past Medical History Past Medical History: Dementia, Eye Disorder, GERD/Reflux, Hypertension, Sleep Apnea/CPAP/BIPAP Additional Past Medical History / Comment(s): hx. of pre-cancerous colon mass,hiatal hernia,duodenitis,gastritis,diverticulosisHX OF ENDOMETRIOSIS, HEMORRHOIDS, GLAUCOMA AND CATARACTS, not currently taking anything for BP History of Any Multi-Drug Resistant Organisms: None Reported Past Surgical History: Bowel Resection, Breast Surgery, Tonsillectomy, Tubal Ligation Additional Past Surgical History / Comment(s): breast reduction, hemorroidectomy, carpal tunnel, lasik eye surgery, labial reduction Past Anesthesia/Blood Transfusion Reactions: No Reported Reaction Additional Past Anesthesia/Blood Transfusion Reaction / Comment(s): NO PROBLEMS WITH PRIOR AUTOLOGEOUS BLOOD Smoking Status: Never smoker - Past Family History Father Family Medical History: Cancer Additional Family Medical History / Comment(s): BLADDER CA. Sister(s) Family Medical History: Cancer Additional Family Medical History / Comment(s): NON-HODGKINS LYMPHOMA AND LARGE B CELL. Medications and Allergies Home Medications Medication Instructions Recorded Confirmed Type Citalopram Hydrobromide [CeleXA] 20 mg PO QAM 09/02/16 07/06/20 History Timolol 0.25% Ophth Soln [Timoptic 1 drop BOTH EYES QAM 04/10/19 07/06/20 History 0.25% Ophth Soln] Omeprazole 40 mg PO QAM 05/08/19 07/06/20 History Cholecalciferol [Vitamin D3 (25 2,000 unit PO DAILY 07/06/20 07/06/20 History Mcg = 1000 Iu)] Allergies Allergy/AdvReac Type Severity Reaction Status Date / Time levofloxacin [From Levaquin] Allergy Rash/Hives, Verified 07/06/20 17:20 palpations
[~2020-07-08 09:47] MED LIST changes: -ALVIMOPAN 12 MG CAPSULE PO ONE; -Antibiotics per Pharmacy 1 EACH MISC MISCELLANE PRN; -DEXAMETHASONE SOD PHOSPHATE 10 MG/ML 1 ML VIAL IV ONE; -HEPARIN SODIUM,PORCINE 5,000 UNIT/ML 1 ML VIAL SQ ONE; +LACTATED RINGERS 1,000 ML IV SCH; +LIDOCAINE 1% (10MG/ML) FOR IV START INTRADERMA PRN; -LIDOCAINE 1% 20 ML VIAL (10MG/ML) FOR IV START INTRADERMA PRN; -ONDANSETRON 4 MG/2 ML VIAL IVP ONE; -ONDANSETRON 4 MG/2 ML VIAL IVP PRN; -SCOPOLAMINE 1.5MG/72HR PATCH TRANSDERM ONE; -metroNIDAZOLE-NS PMX 500 MG in SALINE 1 100ML.BAG IVPB ONE
[2020-07-08 10:29] VITALS: TEMP 98.1
[2020-07-08] MEDS ORDERED: PROPOFOL 10 MG/ML 20 ML VIAL IV ONE (10:35)
[2020-07-08] MEDS ORDERED: LIDOCAINE 1% INJ 10MG/ML (20 ML MDV) ONE (10:35)
--- NOTE | 2020-07-08 10:40 | P.HPADDEND ---
H&P Addendum H&P Addendum Date: 07/08/20 Patient seen and evaluated. She reports severe epigastric pain with history of gastroesophageal reflux disease. We'll proceed with upper endoscopy. Consent for upper endoscopy obtained.
--- NOTE | 2020-07-08 10:50 | P.PCN ---
Date of Procedure: 07/08/20 Description of Procedure: PREOPERATIVE DIAGNOSIS: Gastroesophageal reflux disease. Epigastric abdominal pain POSTOPERATIVE DIAGNOSIS: Gastroesophageal reflux disease. Epigastric abdominal pain Gastritis Gastric polyps Duodenitis OPERATION: Esophagogastroduodenoscopy with biopsies along antrum, duodenum SURGEON: Malou Tipton MD ANESTHESIA: MAC. INDICATIONS: The patient is a 55-year-old female who presents with a history of reflux disease including increased epigastric abdominal pain. Benefits and risks of the procedure were described. Informed consent was obtained. DESCRIPTION: The patient was brought into the endoscopy suite and laid in the left lateral decubitus position. An Olympus gastroscope was passed along the posterior oropharynx down to the distal esophagus where the squamocolumnar junction was encountered at 38 cm from the incisors. The stomach was entered and no bile reflux was found. Additional findings are listed below. Biopsies with cold forceps were obtained of the antrum. The first through third portion of the duodenum was examined. Retroflexion of the scope confirmed Hill grade 1 lower esophageal valve. The squamocolumnar junction demonstrated LA grade A erosive esophagitis. The stomach was desufflated. The patient tolerated the procedure well. FINDINGS: Squamocolumnar junction 38 cm from the incisors. Diaphragmatic hiatus at 38 cm. Hill grade 1 lower esophageal valve. LA grade A erosive esophagitis. Active duodenitis. Multiple hyperplastic gastric polyps Chronic gastritis RECOMMENDATIONS: Upper endoscopy as needed.
--- NOTE | 2020-07-08 11:23 | P.PCN ---
Date of Procedure: 07/08/20 Description of Procedure: PREOPERATIVE DIAGNOSIS: History of high risk ascending colon polyp Status post right hemicolectomy POSTOPERATIVE DIAGNOSIS: History of high risk ascending colon polyp Status post right hemicolectomy Severe sigmoid diverticulosis External hemorrhoids, grade 3 OPERATION: Colonoscopy to the ileocecal anastomosis SURGEON: Malou Tipton MD. ANESTHESIA: MAC. INDICATIONS: The patient is a 55-year-old female who presents for colonoscopy surveillance from high risk colon adenoma resection, status post right hemicolectomy 1 year ago. Benefits and risks were described and informed consent was obtained. DESCRIPTION OF PROCEDURE: The patient had undergone Suprep. She had been brought into the operating room and laid in the left lateral decubitus position. After adequate intravenous sedation, the rectum was examined with 2% lidocaine jelly. External hemorrhoids were encountered. The rectal tone was within normal limits. No lesions were palpated in the rectal vault. The sigmoid colon was highly tortuous and with a stricture at 20 cm from the anal verge requiring conversion from an adult colonoscope to a pediatric colonoscope. Abdominal pressure was used to advance the scope. An Olympus colonoscope was advanced to the ileocolic anastomosis was clearly viewed. The prep was excellent. Severe sigmoid diverticulosis with redundancy and stricture at 20 cm from the anal verge was identified. No large colonic polyps were found. No evidence of focal colitis was found. Retroflexion of the scope demonstrated grade 3 internal hemorrhoids without active bleeding or inflammation. The colon was desufflated. The patient had tolerated the procedure well. Withdrawal time was over 6 minutes. FINDINGS: Aronchick preparation quality scale 1 (1-5) Internal hemorrhoids, grade 3 External prolapsed hemorrhoids, grade 3 No arteriovenous malformations. No adenomatous polyps. No focal colitis. Sigmoid diverticulosis with redundancy and stricture at 20 cm from the anal verge RECOMMENDATIONS: Lower endoscopy in one year due to higher risk colon adenoma, 2020 Plan - Discharge Summary Discharge Rx Participant: No New Discharge Prescriptions: Continue Citalopram Hydrobromide [CeleXA] 20 mg PO QAM Timolol 0.25% Ophth Soln [Timoptic 0.25% Ophth Soln] 1 drop BOTH EYES QAM Omeprazole 40 mg PO QAM Cholecalciferol [Vitamin D3 (25 Mcg = 1000 Iu)] 2,000 unit PO DAILY Discharge Medication List Citalopram Hydrobromide [CeleXA] 20 mg PO QAM 09/02/16 [History] Timolol 0.25% Ophth Soln [Timoptic 0.25% Ophth Soln] 1 drop BOTH EYES QAM 04/10/19 [History] Omeprazole 40 mg PO QAM 05/08/19 [History] Cholecalciferol [Vitamin D3 (25 Mcg = 1000 Iu)] 2,000 unit PO DAILY 07/06/20 [History] Follow up Appointment(s)/Referral(s): Malou Tipton MD [STAFF PHYSICIAN] - 07/28/20 Patient Instructions/Handouts: Gastritis (DC), Diet for Stomach Ulcers and Gastritis (ED), Diverticulosis (DC), Diverticulosis Diet (GEN) Activity/Diet/Wound Care/Special Instructions: Repeat colonoscopy in one year, 2020 Discharge Disposition: HOME SELF-CARE
[2020-07-08 11:36] VITALS: BP 138/70; PULSE 70; RESP 18
== END 2020-07-08 12:16 | disposition home or self-care (01) ==
LOC: ORWHC2ENDO 09:47
PROVIDERS: ATTEND Surgery Plastic and Reconstructive Surgery
DX: K29.50 Unspecified chronic gastritis without bleeding (principal); K31.7 Polyp of stomach and duodenum; K56.699 Other intestinal obstruction unspecified as to partial versus complete obstruction; K57.30 Diverticulosis of large intestine without perforation or abscess without bleeding; K21.00 Gastro-esophageal reflux disease with esophagitis, without bleeding; K22.10 Ulcer of esophagus without bleeding; K29.80 Duodenitis without bleeding; K64.4 Residual hemorrhoidal skin tags; K64.2 Third degree hemorrhoids; Z86.010 Personal history of colon polyps; I10 Essential (primary) hypertension; G47.33 Obstructive sleep apnea (adult) (pediatric); Z79.899 Other long term (current) drug therapy; Z98.890 Other specified postprocedural states; Z88.1 Allergy status to other antibiotic agents; Z88.2 Allergy status to sulfonamides; Z90.49 Acquired absence of other specified parts of digestive tract; Z98.51 Tubal ligation status; Z87.19 Personal history of other diseases of the digestive system; F03.90 Unspecified dementia, unspecified severity, without behavioral disturbance, psychotic disturbance, mood disturbance, and anxiety; H40.9 Unspecified glaucoma; Z98.49 Cataract extraction status, unspecified eye; Z80.52 Family history of malignant neoplasm of bladder; Z80.7 Family history of other malignant neoplasms of lymphoid, hematopoietic and related tissues
CPT/HCPCS: 88305; 45378; 43239; J2001; J2704

== ENCOUNTER → 2020-07-28 | Outpatient (CLI) | payer BC | END | disposition home or self-care (01) | LOC: RADECHMAIN 17:25 | PROVIDERS: ATTEND Surgery Plastic and Reconstructive Surgery | DX: Z53.9 Procedure and treatment not carried out, unspecified reason (principal) ==

== ENCOUNTER → 2020-08-13 | Outpatient (CLI) | payer BC ==
--- NOTE | 2020-08-13 17:07 | MR ---
EXAMINATION TYPE: MR brain wo/w con DATE OF EXAM: 08/13/2020 COMPARISON: NONE HISTORY: 55-year-old female Abnormal gait, headaches, memory loss. TECHNIQUE: Multiplanar, multisequence images of the brain and brainstem were acquired before and aft er administration of 9 mL IV Gadavist. Diffusion weighted imaging is performed. FINDINGS: No evidence for acute infarction, hemorrhage, midline shift, herniation, effacement of basal cisterns , or extra-axial fluid collection. There is a T2 intermediate to low signal intensity round extra-axial, and avidly enhancing mass withi n the left posterior cranial fossa measuring 2.3 x 2.3 x 2.2 cm. There is local mass effect onto the left cerebellar hemisphere but no midline shift or ventricular effacement. On axial FLAIR, there may be some minimal surrounding edema. The ventricles and sulci are age-appropriate. Mild generalized supratentorial volume loss. Major intracranial flow voids are intact. T2/FLAIR weighted sequences show mild scattered burden of right white matter change in the subcortica l and deep white matter regions of both cervical hemispheres. Slightly prominent fluid along the optic nerve sheaths and a partially empty sella incidentally noted . Otherwise, midline structures demonstrate normal morphology. The craniocervical junction is normal. Post contrast images demonstrate no other evidence of pathologic enhancement. Dural venous sinuses a re patent. Moderate mucosal thickening ethmoid air cells and left maxillary sinus. Some proximity fluid is also present in the left maxillary sinus. Slight nasal septal deviation. IMPRESSION: 1. A 2.3 cm extra-axial mass suggestive of meningioma within the left posterior cranial fossa. This e xerts local mass effect onto the left cerebellar hemisphere without midline shift or ventricular effa cement. However, there may be some minimal associated surrounding edema. Neurosurgical referral may b e helpful to determine if any of the patient's symptoms relate to this lesion or if this is purely in cidental. 2. There is some prominent fluid along the optic nerve sheaths which could reflect some dural ectasia . However, given a partially empty sella, correlate with ophthalmologic exam and clinical symptoms to exclude the possibility of pseudotumor cerebri. This is considered less likely given the patient's a ge. 3. Mild scattered burden of chronic small vessel ischemic disease. No acute intracranial abnormality otherwise seen. 4. Acute on chronic left maxillary sinusitis.
== END | disposition home or self-care (01) ==
LOC: RADMRIMAIN 15:24
PROVIDERS: ATTEND Family Medicine
DX: G93.89 Other specified disorders of brain (principal); I67.82 Cerebral ischemia
CPT/HCPCS: 70553; A9585

== ENCOUNTER → 2020-08-13 | Outpatient (CLI) | payer BC ==
[2020-08-13 15:31] LABS: HGB 12.6 gm/dL (11.4-16.0); MCH 29.2 pg (25.0-35.0); MCHC 33.2 g/dL (31.0-37.0); Mean Platelet Volume 8.6; Platelet Count 211 k/uL (150-450); RBC 4.32 m/uL (3.80-5.40); RDW 14.2 % (11.5-15.5); WBC 7.5 k/uL (3.8-10.6)
[2020-08-13 15:47] LABS: Albumin 4.4 g/dL (3.5-5.0); Calcium 9.5 mg/dL (8.4-10.2); Potassium 4.3 mmol/L (3.5-5.1); Total Protein 7.3 g/dL (6.3-8.2)
== END | disposition home or self-care (01) ==
LOC: LABWHC1 14:56
PROVIDERS: ATTEND Surgery Plastic and Reconstructive Surgery
DX: Z01.818 Encounter for other preprocedural examination (principal)
CPT/HCPCS: 36415; 80053; 85027

== ENCOUNTER → 2020-10-19 | Outpatient (CLI) | payer BC ==
[2020-10-19 15:09] LABS: HCT 39.1 % (34.0-46.0); HGB 12.9 gm/dL (11.4-16.0); MCH 29.1 pg (25.0-35.0); MCHC 32.9 g/dL (31.0-37.0); MCV 88.4 fL (80.0-100.0); Mean Platelet Volume 8.9; Platelet Count 195 k/uL (150-450); RBC 4.43 m/uL (3.80-5.40); RDW 13.8 % (11.5-15.5)
[2020-10-19 15:18] LABS: Albumin 4.4 g/dL (3.5-5.0); Calcium 9.6 mg/dL (8.4-10.2); Potassium 4.9 mmol/L (3.5-5.1); Total Bilirubin 0.8 mg/dL (0.2-1.3); Total Protein 7.4 g/dL (6.3-8.2)
== END | disposition home or self-care (01) ==
LOC: LABWHC1 13:26
PROVIDERS: ATTEND Surgery Plastic and Reconstructive Surgery
DX: Z01.818 Encounter for other preprocedural examination (principal)
CPT/HCPCS: 36415; 80053; 85027

== ENCOUNTER 2020-10-23 07:03 | Inpatient (IN) | payer BC ==
[2020-10-15 11:22] VITALS: BMI 30.7
--- NOTE | 2020-10-22 12:38 | P.PN ---
Progress Note - Text Progress Note Date: 10/22/20 Patient has pre-existing history of meningioma of the brain. She has seen a neurosurgeon for which she was cleared to proceed with colon resection. Bowel prep reviewed including questions. Dietary restrictions pre-and post surgery also reviewed. Perioperative management also described including nonnarcotic pain management. All questions addressed.
--- NOTE | 2020-10-23 05:25 | P.GSHP ---
History of Present Illness H&P Date: 10/23/20 CHIEF COMPLAINT: Diverticulosis HISTORY OF PRESENT ILLNESS: The patient is a 55-year-old female with intermittent severe abdominal pain due to diverticulosis. She completed a colonoscopy which excluded underlying neoplasm. Now she presents for sigmoid colon resection. PAST MEDICAL HISTORY: Please see list. PAST SURGICAL HISTORY: Please see list. MEDICATIONS: Please see list. ALLERGIES: Please see list. SOCIAL HISTORY: Please see list. FAMILY HISTORY: Please see list. REVIEW OF ORGAN SYSTEMS: CONSTITUTIONAL: Denies any fever or chills. HEENT: Denies any trouble with vision or nosebleeds. No difficulty swallowing. LYMPHATIC: The patient denies any lumps and bumps around the neck. ENDOCRINE: Denies any thyroid disorders. Denies blood sugar glucose intolerance. RESPIRATORY: Denies pneumonia. Denies any troubles with breathing or dyspnea on exertion. CARDIOVASCULAR: Denies any chest pain, palpitations, or recent heart attacks. GASTROINTESTINAL: Has chronic constipation and change in bowel habits GENITOURINARY: Denies increased urinary frequency. MUSCULOSKELETAL: Has back pain, stiffness, joint arthritis. NEUROLOGIC: Denies any numbness or tingling along the distal extremities. PSYCHIATRIC: Denies suidical ideation. HEMATOLOGIC: Denies any abnormal bleeding or bruising. PHYSICAL EXAM: VITAL SIGNS: Stable GENERAL: Well-developed pleasant in no acute distress. HEENT: No scleral icterus. Extraocular movements grossly intact. Moist buccal mucosa. He is hard of hearing. NECK: Supple without lymphadenopathy. CHEST: Unlabored respirations. Equal bilateral excursions. CARDIOVASCULAR: Regular rate and rhythm. Distal 2+ pulses. ABDOMEN: Soft, nontender, nondistended. MUSCULOSKELETAL: No clubbing, cyanosis, or edema. NERUO: Regular 2-12 grossly intact. PSYCH: Alert and oriented to person place and time. ASSESSMENT: 1. Diverticulosis PLAN: 1. Benefits and risks of surgical intervention for sigmoid resection reviewed in detail. Robotic-assisted approach was also described. 2. She has completed an enhanced colon recovery program. 3. DVT prophylaxis. 4. Antibiotic prophylaxis. Past Medical History Past Medical History: Eye Disorder, GERD/Reflux, Hypertension, Sleep Churn Tender ea/CPAP/BIPAP Additional Past Medical History / Comment(s): hx. of pre-cancerous colon mass,hiatal hernia,duodenitis,gastritis,diverticulosis HX OF ENDOMETRIOSIS, HEMORRHOIDS, GLAUCOMA AND CATARACTS, not currently taking anything for BP,. memory issues, benign meningioma with balance issues History of Any Multi-Drug Resistant Organisms: None Reported Past Surgical History: Bowel Resection, Breast Surgery, Tonsillectomy, Tubal Ligation Additional Past Surgical History / Comment(s): breast reduction, hemorroidectomy, carpal tunnel, lasik eye surgery, labial reduction Past Anesthesia/Blood Transfusion Reactions: No Reported Reaction Additional Past Anesthesia/Blood Transfusion Reaction / Comment(s): NO PROBLEMS WITH PRIOR AUTOLOGEOUS BLOOD Smoking Status: Never smoker - Past Family History Father Family Medical History: Cancer Additional Family Medical History / Comment(s): BLADDER CA. Sister(s) Family Medical History: Cancer Additional Family Medical History / Comment(s): NON-HODGKINS LYMPHOMA AND LARGE B CELL. Medications and Allergies Home Medications Medication Instructions Recorded Confirmed Type Citalopram Hydrobromide [CeleXA] 20 mg PO QAM 09/02/16 10/15/20 History Timolol 0.25% Ophth Soln [Timoptic 1 drop BOTH EYES QAM 04/10/19 10/15/20 History 0.25% Ophth Soln] Omeprazole 40 mg PO QAM 05/08/19 10/15/20 History Cholecalciferol [Vitamin D3 (25 2,000 unit PO DAILY 07/06/20 10/15/20 History Mcg = 1000 Iu)] Allergies Allergy/AdvReac Type Severity Reaction Status Date / Time levofloxacin [From Levaquin] Allergy Rash/Hives, Verified 10/15/20 11:03 palpations
[~2020-10-23 07:03] MED LIST changes: +ACETAMINOPHEN TAB 500 MG TAB PO ONE; +Antibiotics per Pharmacy 1 EACH MISC MISCELLANE PRN; +DEXAMETHASONE SOD PHOSPHATE 4 MG/ML 1 ML VIAL IV ONE; +HEPARIN SODIUM,PORCINE 5,000 UNIT/ML 1 ML VIAL SQ PRN; +HYDROmorphone 0.5 MG/0.5 ML SYRINGE IVP PRN; -LACTATED RINGERS 1,000 ML IV SCH; +MIDAZOLAM 2 MG/2 ML VIAL IV PRN; +ONDANSETRON 4 MG/2 ML VIAL IVP ONE; +metroNIDAZOLE-NS PMX 500 MG in SALINE 1 100ML.BAG IVPB PRN
[2020-10-23] MEDS: LACTATED RINGERS 1,000 ML IV SCH (08:15)
[2020-10-23 08:43] LABS: Basophils # (A) 0.1 k/uL (0-0.2); Basophils % (A) 1 %; Eosinophils # (A) 0.1 k/uL (0-0.7); Eosinophils % (A) 2 %; HCT 39.6 % (34.0-46.0); HGB 13.9 gm/dL (11.4-16.0); Lymphocytes # (A) 1.8 k/uL (1.0-4.8); Lymphocytes % (A) 31 %; MCV 85.6 fL (80.0-100.0); Mean Platelet Volume 8.5; Monocytes # (A) 0.3 k/uL (0-1.0); Monocytes % (A) 5 %; Neutrophils # (A) 3.5 k/uL (1.3-7.7); Neutrophils % (A) 61 %; Platelet Count 209 k/uL (150-450); RBC 4.63 m/uL (3.80-5.40); RDW 13.6 % (11.5-15.5); WBC 5.8 k/uL (3.8-10.6)
[2020-10-23] MEDS ORDERED: NALOXONE 0.4 MG/ML 1 ML VIAL IV PRN (08:45)
--- NOTE | 2020-10-23 08:45 | P.ANPRN ---
Procedure Note - Anesthesia - Epidural/Spinal Epidural Continuous Time Out Performed: Yes Date of Procedure: 10/23/20 Procedure Start Time: 08:28 Procedure Stop Time: 08:35 Location of Patient: PreOp Indication: Acute Post-Operative Pain, Requested by Surgeon Sedation Type: Sedate with meaningful contact maintained Preparation: Sterile Dressing Position: Sitting Catheter: Indwelling Needle Guage: 18 Injectate: Test Dose Lidocaine1.5% w/1:200,000 epi Blood Aspirated: No Pain Paresthesia on Injection Noted: No Events: Uneventful and Well Tolerated (test doce 3cc given no adverse event noted)
[2020-10-23 08:51] LABS: Albumin 4.7 g/dL (3.5-5.0); Calcium 9.4 mg/dL (8.4-10.2); Potassium 4.4 mmol/L (3.5-5.1); Total Protein 7.7 g/dL (6.3-8.2)
[2020-10-23] MEDS ORDERED: ONDANSETRON 4 MG/2 ML VIAL ONE (09:27)
[2020-10-23] MEDS ORDERED: SUCCINYLCHOLINE CHLORIDE 100 MG/5 ML SYR IV ONE (09:27)
[2020-10-23] MEDS ORDERED: NEOSTIGMINE 1 MG/ML 10 ML VIAL ONE (09:27)
[2020-10-23] MEDS ORDERED: LIDOCAINE 1% INJ 10MG/ML (20 ML MDV) ONE (09:27)
[2020-10-23] MEDS ORDERED: MIDAZOLAM 2 MG/2 ML VIAL ONE (09:27)
[2020-10-23] MEDS ORDERED: ROCURONIUM 10 MG/ML (10 ML VIAL) IV ONE (09:27)
[2020-10-23] MEDS ORDERED: ePHEDrine SULFATE/0.9% NACL/PF 50 MG/5 ML SYRINGE IV ONE (09:27)
[2020-10-23] MEDS ORDERED: GLYCOPYRROLATE 0.2 MG/ML 2 ML VIAL ONE (09:27)
[2020-10-23] MEDS ORDERED: KETAMINE 10 MG/ML 20 ML VIAL ONE (09:27)
[2020-10-23] MEDS ORDERED: PROPOFOL 10 MG/ML 20 ML VIAL IV ONE (09:27)
[2020-10-23] MEDS ORDERED: fentaNYL (PF) 50 MCG/ML 2 ML AMP ONE (09:27)
[2020-10-23] MEDS ORDERED: LIDOCAINE 1%-EPI 1:100,000 20 ML VIAL SQ ONE (10:20)
[2020-10-23] MEDS ORDERED: LACTATED RINGERS 1,000 ML IV ONE ×2 (13:07→13:34)
[2020-10-23] MEDS: ROPIVACAINE 250 MG, HYDROMORPHONE (PF) 5 MG in SODIUM CHLORIDE 0.9% 200 ML EPIDURAL PRN ×2 (13:40→16:35)
[2020-10-23] MEDS ORDERED: HYDROmorphone 1 MG/ML 1 ML SYRINGE IVP PRN (13:44)
[2020-10-23] MEDS ORDERED: BENZOCAINE/MENTHOL LOZENG 1 EACH LOZENGE MUCOUS MEM PRN (14:00)
--- NOTE | 2020-10-23 14:01 | P.OP ---
Date of Procedure: 10/23/20 Description of Procedure: SURGEON: DILLON TIDWELL MD PREOPERATIVE DIAGNOSES: 1. 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 Intermittent large bowel obstruction due to sigmoid stricture 3. Meningioma of the brain 4. Obesity, BMI 31.2 5. History of pelvic endometriosis POSTOPERATIVE DIAGNOSES: 1. 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 Intermittent large bowel obstruction due to sigmoid stricture 3. Meningioma of the brain 4. Obesity, BMI 31.2 5. History of pelvic endometriosis 6. Pelvic peritoneal adhesions OPERATION: 1. Robotic-assisted daVinci Xi laparoscopic sigmoid colectomy with low anterior resection using 29 mm EEA Ethicon powered stapler 2. Intraoperative flexible sigmoidoscopy using colonoscope Anesthesia: GETA, local ESTIMATED BLOOD LOSS: 20 mL SPECIMENS REMOVED: Sigmoid colon. COMPLICATIONS: None. Pathology: other (Sigmoid colectomy) Condition: stable Disposition: floor FINDINGS: 1. Pelvic adhesions consistent with prior endometriosis 2. Highly redundant sigmoid colon with stricture at 20 cm from the anal verge removed INDICATIONS: The patient is a 55-year-old male with history of diverticulosis including chronic constipation and intermittent large bowel obstruction. Barium enema including colonoscopy confirmed sigmoid stricture. Surgical resection with colectomy described. Benefits and risks, including infection, bowel injury, ureteral injury, colostomy creation and possibility for additional surgery was discussed at length. Informed consent was obtained. All questions of the patient and family were answered. DESCRIPTION: Earlier the patient had undergone a bowel prep using the enhanced colon recovery program. The patient was transferred to the operating room and placed supine. A Dahl catheter was placed. The abdomen was then prepped and draped in standard sterile fashion as Ioban was placed along the abdomen to minimize any contamination of skin floor. After a timeout protocol was performed, attention was then brought to the left upper quadrant whereby a 0 degree 5 mm laparoscopic trocar entry was performed. The abdominal cavity was entered and insufflated to 15 mmHg pressure, which was tolerated well. Next a robotic 8-mm trocar was placed along the epigastrium 20 cm superior from the pelvis. A 12 mm port was placed along the right upper quadrant. Ports were placed 10 cm apart from each other including 15-20 cm away from the target anatomy of the left pelvis. The 5-mm port was exchanged for an 8 mm robotic por t. A 12 mm was placed along the left lateral abdominal wall. The 8-mm port was arranged along the right lateral abdominal wall. The patient was then placed in Trendelenburg position, at least 14. The robotic da Lizbeth XI system was primed. The robot was docked from the right side of the patient. Using atraumatic graspers and vessel sealer, the robotic system was docked and primed as described. Instruments were interchanged by the assistant merchandise manager including scissors, needle regional dedicated truck driver, robotic stapler and vessel sealer. The robot stapler was prepared along the right lateral abdominal wall. Next, attention was brought to identify the sigmoid colon. The descending colon and sigmoid colon was mobilized along the white line of Toldt towards the pelvis. A stay suture using 3-0 silk was placed along the anterior serosa of the descending colon including along the sigmoid colon. The sigmoid mesentery was mobilized using a vessel sealer whereby the distal sigmoid colon was marked and tagged. Using multiple fires of the robot stapler 60 mm green and black loads, the distal sigmoid colon was divided. Mobilization of the colon was performed to the pelvic brim along the sacral promontory. The mesentery of the sigmoid colon was mobilized towards the descending colon using a vessel sealer. The rest of the sigmoid colon mesentery was mobilized using vessel sealer. Additionally, the sigmoid colon was mobilized onto the colon to minimize injury to the ureters. Adhesions within the pelvis were dressed using vessel sealer. Separately, bilateral ovaries and uterus were unremarkable in appearance. An intraoperative sigmoid colonoscopy was performed to confirm location of stricture. Once confirmed I went back to the console. Distal to the stricture site the colon was resected along the proximal rectum using black and green 60 mm loads. Next, I went back to the patient bedside where a 29 mm anvil was entered via the left upper quadrant 12 mm trocar site. A distals descending colotomy was made at the staple line was injury of the anvil. The colotomy was oversewn using 3-0 silk and closed using 60 mm black and green loads. The anvil was projected through the staple line and prepared for connection. A powered 29 mm EEA Ethicon stapler was entered via the rectum. The abdomen within the peritoneum was mated with the stapler for 1 minute. Both donuts were thick and complete on both sides. I went to the foot of the bed to perform a sigmoidoscopy. A flexible colonoscope was inserted along the rectum and advanced to the anastomosis and proximally. No evidence of leaks were identified after normal saline solution over the anastomosis. The anastomosis was completely hemostatic. All irrigation fluid was removed. All needles were removed from the abdominal cavity. The robot was undocked. Via the left upper quadrant stapler site, the resected colon was brought out through the 15 mm trocar EndoCatch bag. The fascial defect was oversewn using 0 Vicryl and a Phil Medina. Next all pneumoperitoneum including instruments were evacuated from the abdominal cavity. All incisions were copiously irrigated using dilute normal saline and hydrogen peroxide mixture. The trocar sites were reapproximated using 4-0 Monocryl in an interrupted subcuticular fashion. Local anesthetic was infiltrated to all wounds for postop analgesia. An Optifoam surgical dressing was placed over the colon extraction site. Exofin skin glue was applied to the rest of the skin incisions. The patient was extubated successfully. The patient was transferred to the postanesthesia care unit in stable condition.
[2020-10-23] MEDS ORDERED: SODIUM CHLORIDE 0.9% 1,000 ML IV ONE (14:04)
[2020-10-23] MEDS ORDERED: SCOPOLAMINE 1.5MG/72HR PATCH TRANSDERM SCH (17:00)
[2020-10-23 17:27] LABS: Glucose,Whole Blood 153 mg/dL (75-99)
[2020-10-23] MEDS: GABAPENTIN 300 MG CAP PO SCH ×2 (17:42→22:15)
[2020-10-23] MEDS: PANTOPRAZOLE 40 MG TABLET PO SCH (17:42)
[2020-10-23] MEDS: ACETAMINOPHEN TAB 500 MG TAB PO SCH (17:42)
[2020-10-23] MEDS: ONDANSETRON 4 MG/2 ML VIAL IVP SCH (17:43)
[2020-10-23] MEDS: SODIUM CHLORIDE 0.9% 1,000 ML IV SCH (17:48)
[2020-10-23] MEDS: metroNIDAZOLE-NS PMX 500 MG in SALINE 1 100ML.BAG IVPB SCH ×2 (17:48→22:14)
[2020-10-23] MEDS: SIMETHICONE 80 MG CHEWABLE PO SCH ×2 (18:06→22:15)
[2020-10-23 20:24] LABS: Glucose,Whole Blood 138 mg/dL (75-99)
[2020-10-23] MEDS: HEPARIN SODIUM,PORCINE 5,000 UNIT/ML 1 ML VIAL SQ SCH (22:14)
[2020-10-24] MEDS: ACETAMINOPHEN TAB 500 MG TAB PO SCH ×4 (01:09→16:35)
[2020-10-24] MEDS: ONDANSETRON 4 MG/2 ML VIAL IVP SCH ×5 (01:10→22:48)
[2020-10-24] MEDS: LACTATED RINGERS 1,000 ML IV SCH (05:12)
[2020-10-24] MEDS: metroNIDAZOLE-NS PMX 500 MG in SALINE 1 100ML.BAG IVPB SCH (05:21)
[2020-10-24] MEDS: SODIUM CHLORIDE 0.9% 1,000 ML IV SCH ×2 (05:25→16:37)
[2020-10-24 06:26] LABS: Basophils % (A) 0 %; Eosinophils % (A) 0 %; HCT 36.7 % (34.0-46.0); HGB 11.8 gm/dL (11.4-16.0); Lymphocytes # (A) 1.2 k/uL (1.0-4.8); Lymphocytes % (A) 15 %; MCHC 32.1 g/dL (31.0-37.0); MCV 90.3 fL (80.0-100.0); Mean Platelet Volume 8.6; Monocytes # (A) 0.3 k/uL (0-1.0); Monocytes % (A) 4 %; Neutrophils # (A) 6.3 k/uL (1.3-7.7); Neutrophils % (A) 80 %; Platelet Count 185 k/uL (150-450); RBC 4.06 m/uL (3.80-5.40); RDW 13.9 % (11.5-15.5); WBC 7.8 k/uL (3.8-10.6)
[2020-10-24 06:57] LABS: Glucose,Whole Blood 121 mg/dL (75-99)
[2020-10-24] MEDS ORDERED: MELOXICAM 7.5 MG TAB PO PRN (07:00)
[2020-10-24] MEDS ORDERED: ALVIMOPAN 12 MG CAPSULE PO PRN (07:00)
[2020-10-24] MEDS: GABAPENTIN 300 MG CAP PO SCH ×3 (07:42→22:49)
[2020-10-24] MEDS: IBUPROFEN 600 MG TAB PO SCH ×4 (07:42→22:49)
[2020-10-24] MEDS: PANTOPRAZOLE 40 MG TABLET PO SCH ×2 (07:42→16:36)
[2020-10-24] MEDS: ALVIMOPAN 12 MG CAPSULE PO SCH ×2 (07:43→22:48)
[2020-10-24] MEDS: SIMETHICONE 80 MG CHEWABLE PO SCH ×4 (07:44→22:47)
[2020-10-24] MEDS: HEPARIN SODIUM,PORCINE 5,000 UNIT/ML 1 ML VIAL SQ SCH ×2 (07:44→22:48)
[2020-10-24 09:37] LABS: African American GFR (CKD) 72.9 (60.0-200.0); Anion Gap 8.1 mmol/L (4.00-12.00); Calcium 8.3 mg/dL (8.7-10.3); Carbon Dioxide 25.9 mmol/L (21.6-31.8); Non-African American GFR(CKD) 62.9 (60.0-200.0); Potassium 4.1 mmol/L (3.5-5.5)
[2020-10-24] MEDS ORDERED: HYDROcodone/APAP 5-325MG 1 EACH TAB PO PRN (10:20)
--- NOTE | 2020-10-24 10:20 | P.PN ---
Subjective Progress Note Date: 10/24/20 Principal diagnosis: Sigmoid colectomy Patient doing well today. Complaining of some fatigue. Low-grade temp 100.3. White blood cell count normal. Patient still has her epidural and Dahl catheter in place. Small amount of diarrhea. Objective - Vital Signs Vital signs: Vital Signs Temp 99.0 F 10/24/20 07:57 Pulse 86 10/24/20 08:00 Resp 18 10/24/20 08:00 BP 91/52 10/24/20 07:57 Pulse Ox 93 L 10/24/20 07:57 Intake & Output 10/23/20 10/24/20 10/24/20 18:59 06:59 18:59 Intake Total 2575 0.4 Output Total 470 250 Balance 2105 -250 0.4 Weight 90.3 kg Intake: IV 2575 Intake, IV Titration 0.4 Amount Ropivacaine 250 mg 0.4 Hydromorphone (Pf) 5 mg In Sodium Chloride 0.9% 200 ml @ Per Protocol EPIDURAL .Q0M PRN Rx#: [id number] Output: Urine 450 250 Estimated Blood Loss 20 Other: Voiding Method Indwelling Catheter Indwelling Catheter - Exam Abdomen: Soft, nondistended, incisions clean and dry, minimal tenderness - Labs CBC & Chem 7: 10/24/20 05:40 10/24/20 05:40 Labs: Abnormal Lab Results - Last 24 Hours (Table) 10/23/20 10/23/20 10/24/20 Range/Units 17:26 20:22 05:40 POC Glucose (mg/dL) 153 H 138 H (75-99) mg/dL Calcium 8.3 L (8.7-10.3) mg/dL 10/24/20 Range/Units 06:55 POC Glucose (mg/dL) 121 H (75-99) mg/dL Calcium (8.7-10.3) mg/dL Assessment and Plan (1) Adenomatous polyp of cecum Narrative/Plan: Patient doing well today. Remove epidural and Dahl catheter. Continue clear liquids. Ambulate. Suspect discharge throughout. Incentive spirometry for fever. Current Visit: No Status: Acute Code(s): D12.0 - BENIGN NEOPLASM OF CECUM SNOMED Code(s): 012984428
[2020-10-24 11:24] LABS: Glucose,Whole Blood 130 mg/dL (75-99)
[2020-10-24 16:47] LABS: Glucose,Whole Blood 128 mg/dL (75-99)
[2020-10-24 20:22] LABS: Glucose,Whole Blood 117 mg/dL (75-99)
--- NOTE | 2020-10-24 20:38 | P.PN ---
Progress Note - Text 10/24/202021 55-year-old female status post bowel resection by Dr. Tipton, patient had an epidural catheter for postop pain control which was discontinued in the morning. Because of low blood pressure. Patient is normotensive presently with the pain scale of 0 at this time
[2020-10-25] MEDS: ACETAMINOPHEN TAB 500 MG TAB PO SCH ×3 (01:20→11:59)
[2020-10-25] MEDS: LACTATED RINGERS 1,000 ML IV SCH (05:43)
[2020-10-25] MEDS: ONDANSETRON 4 MG/2 ML VIAL IVP SCH ×2 (05:44→11:59)
[2020-10-25] MEDS: SODIUM CHLORIDE 0.9% 1,000 ML IV SCH (05:44)
[2020-10-25 06:55] LABS: Glucose,Whole Blood 120 mg/dL (75-99)
[2020-10-25] MEDS: PANTOPRAZOLE 40 MG TABLET PO SCH (07:07)
[2020-10-25] MEDS: IBUPROFEN 600 MG TAB PO SCH ×2 (07:07→11:59)
[2020-10-25] MEDS: GABAPENTIN 300 MG CAP PO SCH (07:07)
[2020-10-25] MEDS: HEPARIN SODIUM,PORCINE 5,000 UNIT/ML 1 ML VIAL SQ SCH (07:08)
[2020-10-25] MEDS: ALVIMOPAN 12 MG CAPSULE PO SCH (07:08)
[2020-10-25] MEDS: SIMETHICONE 80 MG CHEWABLE PO SCH ×2 (07:08→11:59)
--- NOTE | 2020-10-25 10:02 | P.PN ---
Subjective Progress Note Date: 10/25/20 Principal diagnosis: Sigmoid colectomy Patient doing better today. She did have an episode of emesis late last night. T-max 99.1. Minimal discomfort. She was also having double vision and her scopolamine patch was removed. Epidural is out. She is voiding. She is hungry for more than just clear liquids. She is passing flatus. No further bowel movements. Objective - Vital Signs Vital signs: Vital Signs Temp 99.0 F 10/25/20 08:00 Pulse 74 10/25/20 08:00 Resp 18 10/25/20 08:00 BP 127/71 10/25/20 08:00 Pulse Ox 94 L 10/25/20 08:00 Intake & Output 10/24/20 10/25/20 10/25/20 18:59 06:59 18:59 Intake Total 788.55 1780 Output Total 200 200 Balance 588.55 1580 Intake: Intake, IV Titration 8.55 900 Amount Ropivacaine 250 mg 8.55 Hydromorphone (Pf) 5 mg In Sodium Chloride 0.9% 200 ml @ Per Protocol EPIDURAL .Q0M PRN Rx#: [id number] Sodium Chloride 0.9% 1, 900 000 ml @ 75 mls/hr IV . [id number] [place] Rx#:[id number] Oral 780 880 Output: Urine 200 Emesis 200 Other: Voiding Method Indwelling Catheter # Voids 1 # Bowel Movements 1 - Exam Abdomen: Soft, nondistended, incisions clean and dry, dressing left upper quadrant, minimal tenderness - Labs CBC & Chem 7: 10/24/20 05:40 10/24/20 05:40 Labs: Abnormal Lab Results - Last 24 Hours (Table) 10/24/20 10/24/20 10/24/20 Range/Units 11:23 16:45 20:02 POC Glucose (mg/dL) 130 H 128 H 117 H (75-99) mg/dL 10/25/20 Range/Units 06:54 POC Glucose (mg/dL) 120 H (75-99) mg/dL Assessment and Plan (1) Adenomatous polyp of cecum Narrative/Plan: Patient doing well at this time. Advance diet to full liquids. Possible discharge tolerates. Current Visit: No Status: Acute Code(s): D12.0 - BENIGN NEOPLASM OF CECUM SNOMED Code(s): 320301561
[2020-10-25 11:16] LABS: Glucose,Whole Blood 116 mg/dL (75-99)
[2020-10-25 14:43] VITALS: BP 114/71; PULSE 94; RESP 16; TEMP 98.3
--- NOTE | 2020-10-26 05:38 | P.DS ---
Providers Date of admission: 10/23/20 07:03 Expected date of discharge: 10/25/20 Attending physician: Malou Tipton Primary care physician: Stated None - Discharge Diagnosis(es) (1) Sigmoid diverticulosis Status: Acute (2) Large bowel obstruction Status: Acute Hospital Course: POSTOPERATIVE DIAGNOSES: 1. 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 Intermittent large bowel obstruction due to sigmoid stricture 3. Meningioma of the brain 4. Obesity, BMI 31.2 5. History of pelvic endometriosis 6. Pelvic peritoneal adhesions COURSE: The patient is a 55-year-old female who presents with sigmoid stricture with intermittent large bowel obstruction due to diverticulosis. she underwent robotic sigmoid colectomy with low anterior resection. Prior to discharge, she was passing flatus, having bowel movements, pain was controlled and tolerating diet. Patient was deemed stable for discharge. Procedures: OPERATION: 1. Robotic-assisted daVinci Xi laparoscopic sigmoid colectomy with low anterior resection using 29 mm EEA Ethicon powered stapler 2. Intraoperative flexible sigmoidoscopy using colonoscope Anesthesia: GETA, local ESTIMATED BLOOD LOSS: 20 mL SPECIMENS REMOVED: Sigmoid colon. COMPLICATIONS: None. Pathology: other (Sigmoid colectomy) Condition: stable Disposition: floor FINDINGS: 1. Pelvic adhesions consistent with prior endometriosis 2. Highly redundant sigmoid colon with stricture at 20 cm from the anal verge removed Patient Condition at Discharge: Stable Plan - Discharge Summary Discharge Rx Participant: No New Discharge Prescriptions: New Ibuprofen [Motrin] 600 mg PO Q8HR PRN #30 tab PRN Reason: Pain Acetaminophen Tab [Tylenol Tab] 1,000 mg PO Q6HR PRN #30 tablet PRN Reason: Pain Continue Timolol 0.25% Ophth Soln [Timoptic 0.25% Ophth Soln] 1 drop BOTH EYES QAM Omeprazole 40 mg PO QAM Cholecalciferol [Vitamin D3 (25 Mcg = 1000 Iu)] 2,000 unit PO DAILY Discontinued Citalopram Hydrobromide [CeleXA] 20 mg PO QAM Discharge Medication List Timolol 0.25% Ophth Soln [Timoptic 0.25% Ophth Soln] 1 drop BOTH EYES QAM 04/10/19 [History] Omeprazole 40 mg PO QAM 05/08/19 [History] Cholecalciferol [Vitamin D3 (25 Mcg = 1000 Iu)] 2,000 unit PO DAILY 07/06/20 [History] Acetaminophen Tab [Tylenol Tab] 1,000 mg PO Q6HR PRN #30 tablet 10/23/20 [Rx] Ibuprofen [Motrin] 600 mg PO Q8HR PRN #30 tab 10/23/20 [Rx] Follow up Appointment(s)/Referral(s): Malou Tipton MD [STAFF PHYSICIAN] - 10/27/20 Patient Instructions/Handouts: Diverticulitis (DC), Diverticulosis (DC), Laparoscopic Bowel Resection (IP), Diverticulosis Diet (GEN), Colectomy Diet (DC) Activity/Diet/Wound Care/Special Instructions: Wear abdominal binder at all times for comfort. Please notify your pain specialist for narcotic pain meds. No lifting over 10 pounds in 4 weeks until November 23. May shower. No bath tub soaks for two weeks until November 06 Avoid steak, tough meats and seeds such as raspberry seeds. No driving while on narcotics. Use Tylenol and ibuprofen scheduled for the next 24-48 hours for best pain relief. Use ice along incisions for the today to prevent swelling. Discharge Disposition: HOME SELF-CARE
== END 2020-10-25 15:03 | disposition home or self-care (01) | DRG 331 ==
LOC: 2ORMAIN 07:03 → 4SSUR 16:32
PROVIDERS: ADMIT Surgery Plastic and Reconstructive Surgery; ATTEND Surgery Plastic and Reconstructive Surgery
PROC: 0DBP4ZZ Excision of Rectum, Percutaneous Endoscopic Approach (ICD-10-PCS; 2020-10-23)
PROC: 8E0W4CZ Robotic Assisted Procedure of Trunk Region, Percutaneous Endoscopic Approach (ICD-10-PCS; 2020-10-23)
PROC: 0DJD8ZZ Inspection of Lower Intestinal Tract, Via Natural or Artificial Opening Endoscopic (ICD-10-PCS; 2020-10-23)
PROC: 0DTN4ZZ Resection of Sigmoid Colon, Percutaneous Endoscopic Approach (ICD-10-PCS; principal; 2020-10-23 08:55)
DX: K57.32 Diverticulitis of large intestine without perforation or abscess without bleeding (principal); D32.0 Benign neoplasm of cerebral meninges; E66.9 Obesity, unspecified; N80.3 Endometriosis of pelvic peritoneum; I10 Essential (primary) hypertension; G47.30 Sleep apnea, unspecified; K21.9 Gastro-esophageal reflux disease without esophagitis; H40.9 Unspecified glaucoma; K44.9 Diaphragmatic hernia without obstruction or gangrene; H26.9 Unspecified cataract; D12.0 Benign neoplasm of cecum; N73.6 Female pelvic peritoneal adhesions (postinfective); H53.2 Diplopia; Z68.31 Body mass index [BMI] 31.0-31.9, adult; Z98.51 Tubal ligation status; Z98.890 Other specified postprocedural states; Z79.899 Other long term (current) drug therapy; Z88.1 Allergy status to other antibiotic agents; Z80.52 Family history of malignant neoplasm of bladder; Z80.7 Family history of other malignant neoplasms of lymphoid, hematopoietic and related tissues
CPT/HCPCS: 36415; 80048; 80053; 85025; 85027; 86850; 86900; 86901; 88307

== ENCOUNTER 2020-12-03 11:06 | Day surgery (SDC) | payer BC ==
[2020-11-27 15:36] VITALS: BMI 31.1
--- NOTE | 2020-12-03 06:22 | P.GSHP ---
History of Present Illness H&P Date: 12/03/20 CHIEF COMPLAINT: History of intra-abdominal adhesions HISTORY OF PRESENT ILLNESS: The patient is a 55-year-old female who presents with history of intra-abdominal adhesions from multiple prior surgeries including increasing abdominal pain. She now presents for diagnostic laparoscopy including lysis of adhesions. PAST MEDICAL HISTORY: Please see list. PAST SURGICAL HISTORY: Please see list. MEDICATIONS: Please see list. ALLERGIES: Please see list. SOCIAL HISTORY: No illicit drug use FAMILY HISTORY: No reports of Crohn disease or ulcerative colitis. REVIEW OF ORGAN SYSTEMS: CONSTITUTIONAL: No reports of fevers or chills. GI: Denies any blood in stools or constipation. PHYSICAL EXAM: VITAL SIGNS: Stable GENERAL: Well-developed pleasant and in no acute distress. HEENT: No scleral icterus. Extraocular movements grossly intact. Moist buccal mucosa. NECK: Supple without lymphadenopathy. CHEST: Unlabored respirations. Equal bilateral excursions. CARDIOVASCULAR: Regular rate and rhythm. Distal 2+ pulses. ABDOMEN: Soft, diffuse abdominal tenderness. No peritonitis. MUSCULOSKELETAL: No clubbing, cyanosis, or edema. ASSESSMENT: 1. Diffuse abdominal pain. 2. History of multiple abdominal surgeries. 3. Intra-abdominal adhesions. PLAN: 1. Robotic lysis of adhesions were described in detail including risk of injury to the intestine, need for further surgery, and open technique. 2. DVT prophylaxis. 3. Antibiotic prophylaxis. Past Medical History Past Medical History: Eye Disorder, GERD/Reflux, Hyperlipidemia, Osteoarthritis (OA), Sleep Apnea/CPAP/BIPAP Additional Past Medical History / Comment(s): Hx of pre-cancerous colon mass, hiatal hernia, duodenitis, gastritis, diverticulosis. HX OF ENDOMETRIOSIS, HEMORRHOIDS. GLAUCOMA AND CATARACTS. Memory issues, benign Meningioma with bal ance issues. No CPAP use. History of Any Multi-Drug Resistant Organisms: None Reported Past Surgical History: Bowel Resection, Breast Surgery, Tonsillectomy, Tubal Ligation Additional Past Surgical History / Comment(s): Breast reduction, hemorroidectomy, carpal tunnel surgery, lasik eye surgery, labial reduction, bowel surgery X2, "almost all of colon removed". Past Anesthesia/Blood Transfusion Reactions: Previous Problems w/ Anesthesia Additional Past Anesthesia/Blood Transfusion Reaction / Comment(s): NO PROBLEMS WITH PRIOR AUTOLOGEOUS BLOOD. "With the last surgery had issue with Epidural - had triple vision, legs were like jello, could not walk, very unsteady, severe headache". Past Psychological History: No Psychological Hx Reported Additional Psychological History / Comment(s): Citalopram for Postmenopausal S ymptoms. Smoking Status: Never smoker Past Alcohol Use History: Rare Past Drug Use History: None Reported - Past Family History Father Family Medical History: Cancer Additional Family Medical History / Comment(s): BLADDER CA. Sister(s) Family Medical History: Cancer Additional Family Medical History / Comment(s): NON-HODGKINS LYMPHOMA AND LARGE B CELL. Medications and Allergies Home Medications Medication Instructions Recorded Confirmed Type Timolol 0.25% Ophth Soln [Timoptic 1 drop BOTH EYES QAM 04/10/19 11/27/20 History 0.25% Ophth Soln] Omeprazole 40 mg PO QAM 05/08/19 11/27/20 History Cholecalciferol [Vitamin D3 (25 2,000 unit PO DAILY 07/06/20 11/27/20 History Mcg = 1000 Iu)] Citalopram Hydrobromide 20 mg PO QAM 11/27/20 11/27/20 History [Citalopram HBr] Allergies Allergy/AdvReac Type Severity Reaction Status Date / Time levofloxacin [From Levaquin] Allergy Rash/Hives, Verified 11/27/20 15:09 palpations
[~2020-12-03 11:06] MED LIST changes: -ACETAMINOPHEN TAB 500 MG TAB PO ONE; +ACETAMINOPHEN TAB 500 MG TAB PO PRN; -Antibiotics per Pharmacy 1 EACH MISC MISCELLANE PRN; +GABAPENTIN 300 MG CAP PO PRN; +LACTATED RINGERS 1,000 ML IV SCH; +MELOXICAM 7.5 MG TAB PO PRN; -MIDAZOLAM 2 MG/2 ML VIAL IV PRN; +Pre Op ABX Message 1 EACH MISC MISCELLANE ONE; -metroNIDAZOLE-NS PMX 500 MG in SALINE 1 100ML.BAG IVPB PRN
[2020-12-03 12:19] LABS: Basophils % (A) 1 %; Eosinophils # (A) 0.2 k/uL (0-0.7); Eosinophils % (A) 4 %; HCT 37.6 % (34.0-46.0); HGB 13.1 gm/dL (11.4-16.0); Lymphocytes # (A) 1.8 k/uL (1.0-4.8); Lymphocytes % (A) 34 %; MCH 29.9 pg (25.0-35.0); MCHC 34.8 g/dL (31.0-37.0); MCV 85.9 fL (80.0-100.0); Mean Platelet Volume 7.9; Monocytes # (A) 0.2 k/uL (0-1.0); Monocytes % (A) 4 %; Neutrophils % (A) 56 %; Platelet Count 205 k/uL (150-450); RBC 4.38 m/uL (3.80-5.40); RDW 13.7 % (11.5-15.5); WBC 5.3 k/uL (3.8-10.6)
[2020-12-03] MEDS ORDERED: GLYCOPYRROLATE 0.2 MG/ML 2 ML VIAL ONE (14:24)
[2020-12-03] MEDS ORDERED: MIDAZOLAM 2 MG/2 ML VIAL ONE (14:24)
[2020-12-03] MEDS ORDERED: fentaNYL (PF) 50 MCG/ML 2 ML AMP ONE (14:24)
[2020-12-03] MEDS ORDERED: PROPOFOL 10 MG/ML 20 ML VIAL IV ONE (14:24)
[2020-12-03] MEDS ORDERED: ROCURONIUM 10 MG/ML (5 ML VIAL) IV ONE (14:24)
[2020-12-03] MEDS ORDERED: SUCCINYLCHOLINE CHLORIDE 100 MG/5 ML SYR IV ONE (14:24)
[2020-12-03] MEDS ORDERED: NEOSTIGMINE 1 MG/ML 10 ML VIAL ONE (14:24)
[2020-12-03] MEDS ORDERED: LIDOCAINE 1% INJ 10MG/ML (20 ML MDV) ONE (14:24)
[2020-12-03] MEDS ORDERED: BUPIVACAIN-EPI 0.5%-1:200,000 30 ML VIAL SQ ONE (14:59)
[2020-12-03] MEDS ORDERED: LACTATED RINGERS 1,000 ML IV ONE (15:13)
[2020-12-03 15:33] VITALS: TEMP 97.4
--- NOTE | 2020-12-03 15:37 | P.OP ---
Date of Procedure: 12/03/20 Description of Procedure: SURGEON: MALOU TIPTON MD PREOPERATIVE DIAGNOSES: 1. Right quadrant abdominal pain 2. Left upper quadrant abdominal pain 3. Peritoneal adhesions 4. History of multiple abdominal surgeries POSTOPERATIVE DIAGNOSES: 1. Peritoneal adhesions for right quadrant abdominal pain 2. Peritoneal adhesions for left upper quadrant abdominal pain OPERATION: 1. Robotic-assisted da Lizbeth Xi laparoscopic with lysis of adhesions ESTIMATED BLOOD LOSS: 5 mL. SPECIMENS REMOVED: None. COMPLICATIONS: None. OPERATIVE FINDINGS: 1. No abdominal wall incisional hernias 2. 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 Right upper quadrant adhesive band consistent with patient pain excised INDICATIONS: The patient is a 55-year-old female who presents with moderate to severe left upper quadrant and right upper quadrant abdominal pain. She has history of multiple abdominal adhesions. Surgical intervention with diagnostic laparoscopy, lysis of adhesions and possible left inguinal hernia repair were described. Informed consent was obtained. Robotic assisted laparoscopic approach was described. Benefits and risks of the procedure including but not limited to bleeding, infection was described. Informed consent was obtained. DESCRIPTION OF PROCEDURE: Patient was brought to the operating room, placed in supine position. After general induction, the abdomen had been prepped and draped in standard sterile fashion. The robotic da Lizbeth XI system was primed. After a timeout protocol was performed, the patient had been prepped and draped in standard sterile fashion. The robot was docked along the left lateral abdomen. Please note prior to docking of the robot; however, a 5 mm 0 degrees laparoscopic trocar entry was performed along the left upper quadrant. Next, three 8 mm robotic ports were placed along the right lateral abdominal wall abdomen. Trocars were placed at least 10 to 15 cm away from the target anatomy. Instruments including graspers and scissors with cautery were interchanged by the podiatrist assistant. I had sat at the console. Immediately, omental adhesion to the abdominal wall of the right upper quadrant was identified. Separate adhesion was found after the left upper quadrant/flank after positioning her with the left side up including reverse Trendelenburg. All adhesions were addressed using scissors with Bovie cautery. Hemostasis was excellent. The robot was undocked. All pneumoperitoneum and instruments were evacuated from the abdominal cavity. The incisions were reapproximated using 4-0 Monocryl in an interrupted subcuticular fashion. Please note along the trocar sites, local anesthetic was placed as a field block prior to insertion of all instruments. Exofin was applied to the skin. At the end of the procedure needle, sponge, and instrument count had been verified correct by the surgical instrument mechanic. The patient was transferred to postanesthesia care unit in stable condition. Plan - Discharge Summary Discharge Rx Participant: No New Discharge Prescriptions: New Ibuprofen [Motrin] 600 mg PO Q8HR PRN #30 tab PRN Reason: Pain Acetaminophen Tab [Tylenol Tab] 1,000 mg PO Q6HR PRN #30 tablet PRN Reason: Pain Continue Timolol 0.25% Ophth Soln [Timoptic 0.25% Ophth Soln] 1 drop BOTH EYES QAM Omeprazole 40 mg PO QAM Cholecalciferol [Vitamin D3 (25 Mcg = 1000 Iu)] 2,000 unit PO DAILY Citalopram Hydrobromide [Citalopram HBr] 20 mg PO QAM Discharge Medication List Timolol 0.25% Ophth Soln [Timoptic 0.25% Ophth Soln] 1 drop BOTH EYES QAM 04/10/19 [History] Omeprazole 40 mg PO QAM 05/08/19 [History] Cholecalciferol [Vitamin D3 (25 Mcg = 1000 Iu)] 2,000 unit PO DAILY 07/06/20 [History] Citalopram Hydrobromide [Citalopram HBr] 20 mg PO QAM 11/27/20 [History] Acetaminophen Tab [Tylenol Tab] 1,000 mg PO Q6HR PRN #30 tablet 12/03/20 [Rx] Ibuprofen [Motrin] 600 mg PO Q8HR PRN #30 tab 12/03/20 [Rx] Follow up Appointment(s)/Referral(s): Malou Tipton MD [STAFF PHYSICIAN] - 12/08/20 Patient Instructions/Handouts: Lysis of Abdominal Adhesions (DC) Activity/Diet/Wound Care/Special Instructions: No lifting over 10 pounds in 2 weeks until December 17January shower. No bath tub soaks for two weeks until December 17 Diet as tolerated. Use Tylenol and ibuprofen or Aleve scheduled for the next 24-48 hours for best pain relief. Use ice along incisions for today to prevent swelling. Discharge Disposition: HOME SELF-CARE
[2020-12-03 15:53] VITALS: RESP 16
[2020-12-03] MEDS ORDERED: ACETAMINOPHEN TAB 325 MG TAB ONE (16:17)
[2020-12-03] MEDS ORDERED: ACETAMINOPHEN TAB 325 MG TAB PO ONE (16:18)
[2020-12-03 16:36] VITALS: BP 120/78; PULSE 77
== END 2020-12-03 17:09 | disposition home or self-care (01) ==
LOC: OR 11:06
PROVIDERS: ATTEND Surgery Plastic and Reconstructive Surgery
DX: K66.0 Peritoneal adhesions (postprocedural) (postinfection) (principal); K21.9 Gastro-esophageal reflux disease without esophagitis; E78.5 Hyperlipidemia, unspecified; D32.9 Benign neoplasm of meninges, unspecified; M19.90 Unspecified osteoarthritis, unspecified site; G47.33 Obstructive sleep apnea (adult) (pediatric); Z86.010 Personal history of colon polyps; K44.9 Diaphragmatic hernia without obstruction or gangrene; Z87.19 Personal history of other diseases of the digestive system; H40.9 Unspecified glaucoma; H26.9 Unspecified cataract; R41.3 Other amnesia; Z90.49 Acquired absence of other specified parts of digestive tract; Z98.51 Tubal ligation status; Z98.890 Other specified postprocedural states; Z90.89 Acquired absence of other organs; Z79.899 Other long term (current) drug therapy; Z80.52 Family history of malignant neoplasm of bladder; Z80.7 Family history of other malignant neoplasms of lymphoid, hematopoietic and related tissues; Z88.1 Allergy status to other antibiotic agents
CPT/HCPCS: 85025; 49329; J2250; J1644; J1100; J2710; J0690; J2405; J2001; J3010; J0330; J2704; J1170

== ENCOUNTER → 2021-07-24 | Outpatient (CLI) | payer BC ==
--- NOTE | 2021-07-24 13:46 | CT ---
EXAMINATION TYPE: CT abdomen wo con DATE OF EXAM: 07/24/2021 COMPARISON: 03/28/2019 HISTORY: Right upper quadrant tenderness since November 2020. Bowel resection Oct 2020, surgery for adhe sions November 2020. CT DLP: 579.9 mGycm Examination of the solid and hollow viscera is limited given the lack of contrast. FINDINGS: LUNG BASES: No evidence for nodule. No evidence for infiltrate. LIVER/GB: The gallbladder is unremarkable. No space-occupying hepatic lesion. PANCREAS: No pancreatic mass identified. No inflammatory process seen. SPLEEN: No evidence for splenomegaly. No intrasplenic lesions seen. ADRENALS: No adrenal nodules identified. No evidence for thickening. KIDNEYS: Hypoattenuating renal lesions seen. Probable cyst. No nephrolithiasis. No hydronephrosis. BOWEL: Surgical sutures and clips right hemicolon. No evidence for leak or obstructive change within the visualized colon or small bowel. Mild to moderate fecal stasis identified. Lymph nodes: No evidence for adenopathy greater than 1 cm. Abdominal aorta: Atheromatous changes seen. No evidence for aneurysm. Genital organs: No significant abnormality. Other: No significant abnormality. IMPRESSION: Surgical sutures and clips right hemicolon. No evidence for leak or obstructive change within the vis ualized colon or small bowel. Mild to moderate fecal stasis identified.
== END | disposition home or self-care (01) ==
LOC: RADCTMAIN 13:18
PROVIDERS: ATTEND Surgery Plastic and Reconstructive Surgery
DX: R19.5 Other fecal abnormalities (principal)
CPT/HCPCS: 74150

== ENCOUNTER → 2021-08-16 | Outpatient (CLI) | payer BC ==
--- NOTE | 2021-08-18 09:36 | MM ---
Reason for exam: screening (asymptomatic). Last mammogram was performed 1 year and 2 months ago. History: Patient is postmenopausal. Family history of breast cancer in maternal grandmother at age 45 and breast cancer in maternal aunt at age 56. Benign stereotactic core biopsy of the left breast, March 18, 2005. Excisional biopsy of the right breast, 2003. Reductions of both breasts, March 1987. Core biopsy of the left breast. Took hormonal contraceptives for 5 years beginning at age 15. Physical Findings: A clinical breast exam by your physician is recommended on an annual basis and results should be correlated with mammographic findings. MG 3D Screening Mammo W/Cad Bilateral CC and MLO view(s) were taken. Prior study comparison: June 04, 2020, bilateral MG 3d screening mammo w/cad. February 27, 2019, bilateral MG 3d screening mammo w/cad. Finding #1: There is a 10 mm equal density (isodense) mass in the outer quadrant, central position of the right breast. Finding #2: There are indeterminate grouped/clustered calcifications in the lower quadrant, central position of the left breast. Previous mammotome biopsy in the left breast. ASSESSMENT: Incomplete: need additional imaging evaluation, BI-RAD 0 RECOMMENDATION: Special view mammogram of both breasts. If lesion persists on supplemental views, image directed ultrasound is recommended. [facility] will attempt to contact patient to return for supplemental views and ultrasound if indicated.
== END | disposition home or self-care (01) ==
LOC: RADMAMWWP 08:43
PROVIDERS: ATTEND Family Medicine
DX: Z12.31 Encounter for screening mammogram for malignant neoplasm of breast (principal); Z80.3 Family history of malignant neoplasm of breast
CPT/HCPCS: 77063; 77067

== ENCOUNTER → 2021-08-25 | Outpatient (CLI) | payer BC ==
--- NOTE | 2021-08-30 09:22 | MM ---
Reason for exam: additional evaluation requested from abnormal screening. Last mammogram was performed less than 1 month ago. History: Patient is postmenopausal. Family history of breast cancer in maternal grandmother at age 45 and breast cancer in maternal aunt at age 56. Benign stereotactic core biopsy of the left breast, March 18, 2005. Excisional biopsy of the right breast, 2003. Reductions of both breasts, March 1987. Core biopsy of the left breast. Took hormonal contraceptives for 5 years beginning at age 15. Physical Findings: Nurse did not find any significant physical abnormalities on exam. MG 3D Work Up W/Cad LICHA Bilateral LM view(s) were taken. Spot compression CC and spot compression MLO view(s) were taken of the right breast. CC with magnification and LM with magnification view(s) were taken of the left breast. Prior study comparison: August 16, 2021, bilateral MG 3d screening mammo w/cad. June 04, 2020, bilateral MG 3d screening mammo w/cad. There are scattered fibroglandular densities. Previous mammotome biopsy in the left breast. Diffuse round and punctate bilateral calcifications. The right lateral asymmetric density disperses on additional views. The central left breast grouped calcifications are benign inferior skin calcifications. These results were verbally communicated with the patient and result sheet given to the patient on 08/25/21. ASSESSMENT: Benign, BI-RAD 2 RECOMMENDATION: Return to routine screening mammogram schedule for both breasts.
== END | disposition home or self-care (01) ==
LOC: RADMAMWWP 13:36
PROVIDERS: ATTEND Family Medicine
DX: R92.1 Mammographic calcification found on diagnostic imaging of breast (principal); N64.89 Other specified disorders of breast; Z78.0 Asymptomatic menopausal state; Z80.3 Family history of malignant neoplasm of breast
CPT/HCPCS: 77062; 77066

== ENCOUNTER → 2022-12-21 | Outpatient (CLI) | payer BC ==
--- NOTE | 2022-12-21 14:11 | FL ---
EXAMINATION TYPE: FL barium swallow w video DATE OF EXAM: 12/21/2022 MODIFIED SWALLOW / DEGLUTITION STUDY CLINICAL HISTORY: Dysphagia. Choking with solid food. TECHNIQUE: Deglutition study is performed utilizing thin liquid barium, honey and nectar thick liqui d barium, barium thick applesauce, and barium coated cracker. 28 seconds of fluoro time and 0 images obtained. COMPARISON: None. FINDINGS: The oral and pharyngeal phases show satisfactory initiation and propagation with all modali ties tested. Normal mastication is seen with solid modalities tested. There is no evidence of penet ration or aspiration with any modality tested. No significant pharyngeal residue was appreciated. IMPRESSION: No penetration or aspiration observed. Please refer to speech therapist notes for furthe r details if necessary.
--- NOTE | 2022-12-22 18:57 | MM ---
Reason for Exam: Screening (asymptomatic). Last mammogram was performed 1 year(s) and 4 month(s) ago. Patient History: Menarche at age 12. First Full-Term at age 25. Postmenopausal. Patient has history of breast feeding. Hormonal Contraceptives for 5 years from age 15 until age 20. 03/1987, Bilateral Reduction. Core Biopsy on the Left side. 2003, Excisional Biopsy on the Right side. 03/18/2005, Benign Stereotactic Core Biopsy on the left side. Maternal grandmother had breast cancer, age 45. Maternal aunt had breast cancer, age 56. Risk Values: Amber 5 year model risk: 2.2%. NCI Lifetime model risk: 12.5%. Prior Study Comparison: 06/04/2020 Bilateral Screening Mammogram, [facility]. 08/16/2021 Bilateral Screening Mammogram, [facility]. 08/25/2021 Bilateral Diagnostic Mammogram, [facility]. Tissue Density: There are scattered fibroglandular densities. Findings: Analyzed By CAD. Scattered rounded punctate dermal calcifications. Microclip left breast from prior biopsy. Asymmetric density lateral right CC view and superior right MLO view remain unchanged. There is no suspicious group of microcalcifications or new suspicious mass in either breast. Overall Assessment: Benign, BI-RAD 2 Management: Screening Mammogram of both breasts in 1 year. 1. Patient should continue monthly self breast exams. 2. A clinical breast exam by your physician is recommended on an annual basis. 3. This exam should not preclude additional follow-up of suspicious palpable abnormalities. Electronically signed and approved by: Beth Maya M.D. Radiologist
== END | disposition home or self-care (01) ==
LOC: RADFLMAIN 12:01
PROVIDERS: ATTEND Family Medicine
DX: Z12.31 Encounter for screening mammogram for malignant neoplasm of breast (principal); R13.10 Dysphagia, unspecified; R09.89 Other specified symptoms and signs involving the circulatory and respiratory systems; Z78.0 Asymptomatic menopausal state; Z80.3 Family history of malignant neoplasm of breast; Z98.890 Other specified postprocedural states
CPT/HCPCS: 74230; 77063; 77067

== ENCOUNTER → 2023-03-01 | Outpatient (CLI) | payer BC ==
--- NOTE | 2023-03-01 14:30 | P.SLEEP ---
History of Present Illness DATE: 03/01/2023 CONSULTATION/NEW PATIENT EVALUATION HISTORY OF PRESENT ILLNESS/SLEEP-WAKE EVALUATION: 57-year-old lady had been evaluated in the sleep center for possible obstructive sleep apnea hypopnea syndrome. Patient has history of obstructive sleep apnea hypopnea syndrome diagnosed 10 years ago in another institution. At that time she was recommended to use CPAP but after using CPAP for 1 week patient to stop using CPAP ,was not able to use it at that time. SLEEP SCHEDULE: Usually sleep schedule from a 30 p.m. to 4:30 AM on weekdays and until 6:30 AM on weekend. FALLING ASLEEP: No problems with falling asleep. DURING SLEEP: Patient sleeps with loud snoring and witnessed episodes of stop breathing during the sleep. Positive history of restless leg symptoms, heartburn, grinding teeth, awakenings from sleep. No history of hypnogogical hallucinations, sleep paralysis, or cataplexy. DURING THE DAY/WAKE STATE: Patient has difficulties to place attention, falling asleep during the day, has problems with memory and concentration.. [place] sleepiness scale is 10, which indicates sleepiness. Patient takes nap at 10 AM. PAST MEDICAL HISTORY: Acid reflux, premenstrual syndrome, colon cancer, headaches, sinuses problems, glaucoma. PAST SURGICAL HISTORY: Colon resection. MEDICATIONS: Prozac 20 mg once a day, omeprazole 40 mg once a day, Adipex 37.5 mg once a day, timolol eyedrops. SOCIAL HISTORY: Negative for smoking, alcohol consumption occasional. FAMILY HISTORY: Asthma, snoring, cancer, diabetes, restless legs. REVIEW OF SYSTEMS: Loud snoring, awakenings from sleep, sleepiness during the day. No fevers. No double vision. No recent chest pain. No shortness of breath. No abdominal pain. No bleeding episodes. No blood in urine. No seizure episodes. PHYSICAL EXAMINATION: GENERAL: A pleasant patient without any distress. VITAL SIGNS: BP 120/78 , HR 95 , RR 12 , weight 194.8 pounds, height 5 foot 6 inches, body mass index 31.6 . HEENT: PERRLA, EOMI. Evaluation of oropharynx showed tongue protrudes midline, low position of soft palate Mallampati 4. NECK: Supple. No JVD. Thyroid is not palpable. 14.5 inches in circumference. LUNGS: Clear to percussion and to auscultation. Good air exchange. No wheezing or rhonchi. HEART: S1, S2 regular. No murmurs, gallops or rubs. ABDOMEN: Soft and nontender. Bowel sounds are present. No organomegaly appreciated. EXTREMITIES: No clubbing or cyanosis. BACK GRAY CLOTH WASHER: Awake, alert, and oriented x3. Cranial nerves 2 to 7 intact. There is no fasciculation or atrophy noted. No focal deficits observed. ASSESSMENT: 1. Loud snoring, witnessed episodes of stop breathing during the sleep, extremely low position of soft palate Mallampati 4, history of obstructive sleep apnea in the past, sleepiness [place] Sleepiness Scale increased to 10. Obstructive sleep apnea-hypopnea syndrome. 2. Status post colon resection for colon cancer. 3. History of restless leg symptoms. 4. Glaucoma. 5 sinuses problems. 6 . Headaches. PLAN: 1. Polysomnography for evaluation of patient's breathing during sleep. 2. CPAP/BiPAP titration if sleep study confirms obstructive sleep apnea- hypopnea syndrome. 3. Preferable position during sleep on the side. 4. No driving if patient feels any sleepiness. Patient is aware of civil and criminal liability for unsafe driving. 5. Sleep hygiene with regular sleep time for at least 7.5-8 hours. 6. Watching weight. Thank you very much for referring this patient for consultation. Sincerely, Jayjay Ronquillo MD, PhD, FAASM. Diplomat of [place] [employer], Sleep Medicine Board by [place] [employer] [place] [employer] Deputy Building Guard of [facility] [place] Past Medical History Past Medical History: Eye Disorder, GERD/Reflux, Hyperlipidemia, Osteoarthritis (OA), Sleep Apnea/CPAP/BIPAP Additional Past Medical History / Comment(s): Hx of pre-cancerous colon mass, hiatal hernia, duodenitis, gastritis, diverticulosis. HX OF ENDOMETRIOSIS, HEMORRHOIDS. GLAUCOMA AND CATARACTS. Memory issues, benign Meningioma with balance issues. No CPAP use. History of Any Multi-Drug Resistant Organisms: None Reported Past Surgical History: Bowel Resection, Breast Surgery, Tonsillectomy, Tubal Ligation Additional Past Surgical History / Comment(s): Breast reduction, he morroidectomy, carpal tunnel surgery, lasik eye surgery, labial reduction, bowel surgery X2, "almost all of colon removed". Past Anesthesia/Blood Transfusion Reactions: Previous Problems w/ Anesthesia Additional Past Anesthesia/Blood Transfusion Reaction / Comment(s): NO PROBLEMS WITH PRIOR AUTOLOGEOUS BLOOD. "With the last surgery had issue with Epidural - had triple vision, legs were like jello, could not walk, very unsteady, severe headache". Past Alcohol Use History: Rare - Past Family History Father Family Medical History: Cancer Additional Family Medical History / Comment(s): Bladder, stomach, protate Cancers. Sister(s) Family Medical History: Cancer Additional Family Medical History / Comment(s): NON-HODGKINS LYMPHOMA AND LARGE B CELL. Medications and Allergies Home Medications Medication Instructions Recorded Confirmed Type Timolol 0.25% Ophth Soln [Timoptic 1 drop BOTH EYES QAM 04/10/19 09/29/21 History 0.25% Ophth Soln] Omeprazole 40 mg PO QAM 05/08/19 09/29/21 History Cholecalciferol [Vitamin D3 (25 2,000 unit PO DAILY 07/06/20 09/29/21 History Mcg = 1000 Iu)] Citalopram Hydrobromide 20 mg PO QAM 11/27/20 09/29/21 History [Citalopram HBr] Red Yeast Rice 600 mg PO DAILY 09/29/21 09/29/21 History Turmeric Root Extract [Turmeric] 1,053 mg PO DAILY 09/29/21 09/29/21 History hydroCHLOROthiazide [Hydrodiuril] 12.5 mg PO Q48H 09/29/21 09/29/21 History Allergies Allergy/AdvReac Type Severity Reaction Status Date / Time levofloxacin [From Levaquin] Allergy Rash/Hives, Verified 10/04/21 07:17 palpations Sleep Note - Sleep Note Sleep Note: Temperature: Pulse Rate: Respiratory Rate: Blood Pressure: SpO2: Height: Weight: BMI: Neck Circumference:
== END ==
LOC: 3 N SLEEP 13:43
PROVIDERS: ATTEND Internal Medicine
DX: G47.33 Obstructive sleep apnea (adult) (pediatric) (principal); E78.5 Hyperlipidemia, unspecified; H40.9 Unspecified glaucoma; K21.9 Gastro-esophageal reflux disease without esophagitis; M19.90 Unspecified osteoarthritis, unspecified site; R51.9 Headache, unspecified; Z88.1 Allergy status to other antibiotic agents; Z99.89 Dependence on other enabling machines and devices; Z85.038 Personal history of other malignant neoplasm of large intestine; G25.81 Restless legs syndrome; J32.9 Chronic sinusitis, unspecified; Z98.890 Other specified postprocedural states
CPT/HCPCS: 99212

== ENCOUNTER → 2023-09-06 | Outpatient (CLI) | payer BC ==
--- NOTE | 2023-09-06 15:29 | P.PN ---
Subjective DATE: 09/06/2023 FOLLOW UP VISIT. Patient with obstructive sleep apnea hypopnea syndrome return to sleep center for follow-up visit. Recently patient had sleep study which documented obstructive sleep apnea hypopnea syndrome. Patient was initiated on PAP therapy and today is first visit after treatment was started. Patient was able to use PAP equipment every night for the whole night. Patient feels significantly better during the day, alertness significantly improved. The patient does not have significant problems with the mask and humidification. Patient feels any ear inches stomach and the morning after she wakes up from sleep. [place] sleepiness scale is 7. I checked information from PAP unit. PAP unit pressure 5-13, average 12.6 cm H2O. Usage is 90% and 83 % for more then 4 hours, average 6.25 hours per night. Leak is 3.2 l/m, which is in acceptable range. Apnea Hypopnea Index is 0.2, which is perfect. MEDICATIONS:1. Prozac 20 mg once a day 2. Omeprazole 40 mg once a day 3. Adipex 37.5 mg once a day 4. Timolol eyedrops During physical exam: GENERAL: A pleasant patient without any distress. VITAL SIGNS: BP 136/87, HR 72, RR 16 , weight 195, temperature 98, oxygen saturation at room air 98% . HEENT: PERRLA, EOMI.low position of soft palate, Mallapati 4 . NECK: Supple. No JVD. LUNGS: Clear to percussion and to auscultation. Good air exchange. No wheezing or rhonchi. HEART: S1, S2 regular. ABDOMEN: Soft and nontender.[] EXTREMITIES: No clubbing or cyanosis. DRYER OPERATOR: Awake, alert, and oriented x3. No focal deficit. Impressions: 1. Obstructive sleep apnea-hypopnea syndrome. Patient demonstrated great compliance with treatment, benefiting from treatment. 2. Patient developed feeling of air in the stomach in the morning after using CPAP equipment. 3. History of colon cancer, status post resection treatment.. 4. Periodic limb movements 28.0 per hour without micro-arousals during sleep study. 5. History of restless leg symptoms. 6. Glaucoma. 7. History of sinuses problems. 8. History of headaches. Plan: 1. Continue using PAP equipment every night for the whole night. I decreased range of pressure in Pap unit down to 5 -9 centimeters of water. 2. To change air filter at least 1-2 times per month. 3. PAP unit should stay lower then position of the head. 4. Advised patient to remove all remaining water from humidifier canister daily and make it dry after each usage. Refill canister with fresh distilled water before each usage. 5. Sleep hygiene with regular time in bed for at least 8 hours. 6. Precautions related to driving. No driving if feel any sleepiness. 7. I will maintain prescription for PAP supplies including mask, tube, filters. 8. Follow up visit in 2 months or earlier if patient has any problems. 9. Watching weight. Thank you very much for allowing me to participate in the management of your patient. Jayjay Ronquillo MD, PhD, FAASM. Diplomat of [place] [employer], Sleep Medicine Board by [place] [employer] Rn Practitioner of [place] [facility] [place]
== END ==
LOC: 3 N SLEEP 14:52
PROVIDERS: ATTEND Internal Medicine
DX: G47.33 Obstructive sleep apnea (adult) (pediatric) (principal); G25.81 Restless legs syndrome; G47.61 Periodic limb movement disorder; H40.9 Unspecified glaucoma; Z86.79 Personal history of other diseases of the circulatory system; Z85.038 Personal history of other malignant neoplasm of large intestine; Z86.69 Personal history of other diseases of the nervous system and sense organs; Z99.89 Dependence on other enabling machines and devices; Z88.1 Allergy status to other antibiotic agents
CPT/HCPCS: 99212

== ENCOUNTER → 2023-11-22 | Outpatient (CLI) | payer BC ==
--- NOTE | 2023-11-22 16:06 | P.PN ---
Subjective DATE: 11/22/2023 FOLLOW UP VISIT. Patient with obstructive sleep apnea hypopnea syndrome return to sleep center for follow-up visit. Information from previous visit have been reviewed. Presently no feeling of any air in the stomach, which patient feels during the previous visit. During previous visit I decreased pressure in CPAP unit. Patient is using PAP equipment every night for the whole night, getting PAP supplies in time. The patient does not have significant problems with the mask, PAP unit and humidification. [place] sleepiness scale is 3, which is normal. I checked information from PAP unit. PAP unit pressure 5-9, average 9 cm H2O. Usage is 80 % for more then 4 hours, average 6.6 hours per night. Leak is on l/m, which is in acceptable range. Apnea Hypopnea Index is 0.4, which is normal. MEDICATIONS:1. Omeprazole 40 mg once a day 2. Rosuvastatin 10 mg once a day 3. Fluoxetine 20 mg once a day 4. Timolol eyedrops During physical exam: GENERAL: A pleasant patient without any distress. VITAL SIGNS: BP132/82], HR 72, RR 12 , weight 201.6, temperature 98.2, oxygen saturation at room air 98 % . HEENT: PERRLA, EOMI.low position of soft palate, Mallapati 4 . NECK: Supple. No JVD. LUNGS: Clear to percussion and to auscultation. Good air exchange. No wheezing or rhonchi. HEART: S1, S2 regular. ABDOMEN: Soft and nontender. EXTREMITIES: No clubbing or cyanosis. HONEY LIQUEFIER: Awake, alert, and oriented x3. No focal deficit. Impressions: 1. Obstructive sleep apnea-hypopnea syndrome. Patient demonstrated great compliance with treatment, benefiting from treatment.No feeling of air in the stomach after pressure was decreased during the previous visit . 2. Periodic limb movements by results of sleep study, no clinical complaints . 3. History of colon cancer, status post resection]. 4. Glaucoma . 5. History of sinuses problems . 6. History of headaches . 7. Very mild obesity by BMI 31.4, patient increased weight on 6 pounds, possibly secondary to different shoes today comparing with previous visit. Plan: 1. Continue using PAP equipment every night for the whole night. 2. To change air filter at least 1-2 times per month. 3. PAP unit should stay lower then position of the head. 4. Advised patient to remove all remaining water from humidifier canister daily and make it dry after each usage. Refill canister with fresh distilled water before each usage. 5. Sleep hygiene with regular time in bed for at least 8 hours. 6. Precautions related to driving. No driving if feel any sleepiness. 7. I will maintain prescription for PAP supplies including mask, tube, filters. 8. Follow up visit in 6 months or earlier if patient has any problems. 9. Watching weight. Thank you very much for allowing me to participate in the management of your patient. Jayjay Ronquillo MD, PhD, FAASM. Diplomat of [place] Board of Sleep Medicine, Sleep Medicine Board by [place] Board of Internal Medicine [employer] Project Designer of [facility] [place]
== END ==
LOC: 3 N SLEEP 15:41
PROVIDERS: ATTEND Internal Medicine
DX: G47.33 Obstructive sleep apnea (adult) (pediatric) (principal); G47.61 Periodic limb movement disorder; H40.9 Unspecified glaucoma; E66.9 Obesity, unspecified; Z68.31 Body mass index [BMI] 31.0-31.9, adult; Z85.038 Personal history of other malignant neoplasm of large intestine; Z79.899 Other long term (current) drug therapy; Z87.39 Personal history of other diseases of the musculoskeletal system and connective tissue; Z99.89 Dependence on other enabling machines and devices; Z87.09 Personal history of other diseases of the respiratory system; Z88.1 Allergy status to other antibiotic agents
CPT/HCPCS: 99212

== ENCOUNTER 2024-01-25 16:03 | Emergency (ER) | payer BC ==
[2024-01-25 16:53] VITALS: BP 148/85; PULSE 82; TEMP 97.8
[2024-01-25] MEDS: IBUPROFEN 800 MG TAB PO STA (17:13)
--- NOTE | 2024-01-25 17:13 | XR ---
Right foot HISTORY: Heel pain for 3 months. COMPARISON: None TECHNIQUE: 3 views right foot were obtained. FINDINGS: There is a small plantar calcaneal spur. There is no fracture or focal intraosseous abnormality. There is mild osteoarthritic change of the first MTP joint there is mild joint space narrowing and hy pertrophic spurring. There is mild hallux valgus deformity. IMPRESSION: 1. No acute fracture, dislocation. No focal intraosseous abnormality 2. There is a small plantar calcaneal spur 3. Mild hallux valgus deformity and mild degenerative change of the first MTP joint
--- NOTE | 2024-01-25 17:59 | ED ---
General Adult HPI - General Chief complaint: Extremity Injury, Lower Stated complaint: R foot pain Time Seen by Provider: 01/25/24 16:51 Source: patient, RN notes reviewed, old records reviewed Mode of arrival: ambulatory Limitations: no limitations - History of Present Illness Initial comments: Patient is a 58-year-old female who presents with right heel pain that she has been dealing with for the last 3 months. It is mostly in the right heel. Causes a intense burning sensation and pain when she steps on it awkwardly. Has tried inserts in the shoes that she wears as well as rest however pain is still present. Is due to see her PCP soon however does not believe she can wait that long. Denies any obvious injury. Is still ambulatory on it. Does not take any medications at home for it. Presents for further evaluation at this time. Denies any calf pain or edema. Pain seems to be isolated to the inferior aspect of her right heel. - Related Data Home Medications Medication Instructions Recorded Confirmed Timolol 0.25% Ophth Soln [Timoptic 1 drop BOTH EYES QAM 04/10/19 09/29/21 0.25% Ophth Soln] Omeprazole 40 mg PO QAM 05/08/19 09/29/21 Cholecalciferol [Vitamin D3 (25 2,000 unit PO DAILY 07/06/20 09/29/21 Mcg = 1000 Iu)] Citalopram Hydrobromide 20 mg PO QAM 11/27/20 09/29/21 [Citalopram HBr] Red Yeast Rice 600 mg PO DAILY 09/29/21 09/29/21 Turmeric Root Extract [Turmeric] 1,053 mg PO DAILY 09/29/21 09/29/21 hydroCHLOROthiazide [Hydrodiuril] 12.5 mg PO Q48H 09/29/21 09/29/21 Allergies Allergy/AdvReac Type Severity Reaction Status Date / Time levofloxacin [From Levaquin] Allergy Rash/Hives, Verified 10/04/21 07:17 palpations bupropion [From Wellbutrin] AdvReac Rapid Verified 01/25/24 16:26 Heart Rate Review of Systems ROS Statement: Those systems with pertinent positive or pertinent negative responses have been documented in the HPI. Review of Systems: CONST: Denies fever EYES: Denies blurry vision ENT: Denies nasal congestion C/V: Denies Chest pain RESP: Denies shortness of breath GI: Denies abdominal pain : Denies dysuria SKIN: Denies rash. MSK: Endorses right heel pain NEURO: Denies headache ROS Other: All systems not noted in ROS Statement are negative. Past Medical History Past Medical History: Eye Disorder, GERD/Reflux, Hyperlipidemia, Osteoarthritis (OA), Sleep Apnea/CPAP/BIPAP, Thyroid Disorder Additional Past Medical History / Comment(s): Hx of pre-cancerous colon mass, hiatal hernia, duodenitis, gastritis, diverticulosis. HX OF ENDOMETRIOSIS, HEMORRHOIDS. GLAUCOMA AND CATARACTS. Memory issues, benign Meningioma with balance issues. No CPAP use. History of Any Multi-Drug Resistant Organisms: None Reported Past Surgical History: Bowel Resection, Breast Surgery, Tonsillectomy, Tubal Ligation Additional Past Surgical History / Comment(s): Breast reduction, hemorroidectomy, carpal tunnel surgery, lasik eye surgery, labial reduction, bowel surgery X2, "almost all of colon removed". Past Anesthesia/Blood Transfusion Reactions: Previous Problems w/ Anesthesia Additional Past Anesthesia/Blood Transfusion Reaction / Comment(s): NO PROBLEMS WITH PRIOR AUTOLOGEOUS BLOOD. "With the last surgery had issue with Epidural - had triple vision, legs were like jello, could not walk, very unsteady, severe headache". Past Psychological History: No Psychological Hx Reported Smoking Status: Never smoker Past Alcohol Use History: Daily Past Drug Use History: None Reported - Past Family History Father Family Medical History: Cancer Additional Family Medical History / Comment(s): Bladder, stomach, protate Can cers. Sister(s) Family Medical History: Cancer Additional Family Medical History / Comment(s): NON-HODGKINS LYMPHOMA AND LARGE B CELL. General Exam - General Exam Comments Initial Comments: General: Appears in no acute distress. HEAD: Normal with no signs of head trauma. EYES: EOMI. ENT: Hearing grossly intact. RESPIRATORY: No respiratory distress. C/V: Regular rate and rhythm. ABD: Abdomen is nondistended. EXT: No obvious deformity. Tenderness to palpation on the plantar aspect of the right heel. No obvious deformity appreciated. Normal range of motion. [place] test negative. No Achilles tenderness. Neurovascular intact. SKIN: No rashes or lesions observed on exposed skin. NEURO: Alert and oriented. Limitations: no limitations Course Vital Signs 01/25/24 01/25/24 16:22 18:03 Temperature 97.8 F Pulse Rate 82 Respiratory 18 16 Rate Blood Pressure 148/85 O2 Sat by Pulse 98 Oximetry Medical Decision Making - Medical Decision Making Was pt. sent in by a medical professional or institution (, [place], [place], urgent care, hospital, or shelter...) When possible be specific @ -No Did you speak to anyone other than the patient for history (EMS, parent, family, police, friend...)? What history was obtained from this source @ -No Did you review nursing and triage notes (agree or disagree)? Why? @ -I reviewed and agree with nursing and triage notes Were old charts reviewed (outside hosp., previous admission, EMS record, old EKG, old radiological studies, urgent care reports/EKG's, shelter records)? Report findings @ -No old charts were reviewed Differential Diagnosis (chest pain, altered mental status, abdominal pain women, abdominal pain men, vaginal bleeding, weakness, fever, dyspnea, syncope, headache, dizziness, GI bleed, back pain, seizure, CVA, palpatations, mental health, musculoskeletal)? @ -Differential Musculoskeletal Muscular strain, contusion, ligament sprain, fracture, arthritis, septic arthritis, bursitis, cellulitis, muscle spasm, nerve compression, DVT, arterial occlusion, herpes zoster, electrolyte abnormality, tumor.... This is not meant to be in all inclusive list EKG interpreted by me (3pts min.). @ -None done X-rays interpreted by me (1pt min.). @ -Foot x-ray reveals a heel spur. CT interpreted by me (1pt min.). @ -None done U/S interpreted by me (1pt. min.). @ -None done What testing was considered but not performed or refused? (CT, X-rays, U/S, labs)? Why? @ -None What meds were considered but not given or refused? Why? @ -None Did you discuss the management of the patient with other professionals (professionals i.e. , PA, [facility], lab, RT, psych nurse, social media assistant, seafood process worker, teacher, command center officer, lead case manager)? Give summary @ -No Was smoking cessation discussed for >3mins.? @ -No Was critical care preformed (if so, how long)? @ -No Were there social determinants of health that impacted care today? How? (Homelessness, low income, unemployed, alcoholism, drug addiction, transportation, low edu. Level, literacy, decrease access to med. care, intermediate, rehab)? @ -No Was there de-escalation of care discussed even if they declined (Discuss DNR or withdrawal of care, Hospice)? DNR status @ -No What co-morbidities impacted this encounter? (DM, HTN, Smoking, COPD, CAD, Cancer, CVA, ARF, Chemo, Hep., AIDS, mental health diagnosis, sleep apnea, morbid obesity)? @ -None Was patient admitted / discharged? Hospital course, mention meds given and route, prescriptions, significant lab abnormalities, going to OR and other pertinent info. @ -Based on the patient's presentation and physical exam, presents with heel pain. We will obtain an x-ray. Patient given Motrin for analgesia. Pain has been chronic for months and is atraumatic. She was in agreement this plan. X-ray shows a heel spur. We discussed the results. She will follow-up with her PCP. Recommended continued use of the inserts. She can use [id number] analgesic medication for pain control. She was in agreement this plan. I instructed the patient to follow up with their PCP in the next 1-3 days. I explained that the patient should return to the emergency department if they experience any worsening symptoms. Strict return precautions were discussed with the patient. The patient expressed understanding of these instructions. I answered all questions that the patient had. The patient was discharged home in good condition with their prescriptions and follow up information. Undiagnosed new problem with uncertain prognosis? @ -No Drug Therapy requiring intensive monitoring for toxicity (Heparin, Nitro, Insulin, Cardizem)? @ -No Were any procedures done? @ -No Diagnosis/symptom? @ -Right heel spur Acute, or Chronic, or Acute on Chronic? @ -Acute Uncomplicated (without systemic symptoms) or Complicated (systemic symptoms)? @ -Uncomplicated Side effects of treatment? @ -No Exacerbation, Progression, or Severe Exacerbation? @ -No Poses a threat to life or bodily function? How? (Chest pain, USA, MA, pneumonia, PE, COPD, DKA, ARF, appy, cholecystitis, CVA, Diverticulitis, Homicidal, Suicidal, threat to staff... and all critical care pts) @ -No Disposition Clinical Impression: Heel spur Disposition: HOME SELF-CARE Condition: Good Instructions (If sedation given, give patient instructions): Heel Spur (ED) Is patient prescribed a controlled substance at d/c from ED?: No Referrals: Ajit Ochoa DO [Primary Care Provider] - 1-2 days Time of Disposition: 17:59
[2024-01-25 18:11] VITALS: RESP 16
== END 2024-01-25 18:04 | disposition home or self-care (01) ==
LOC: EC 16:03
DX: M77.31 Calcaneal spur, right foot (principal); Z88.1 Allergy status to other antibiotic agents; Z88.8 Allergy status to other drugs, medicaments and biological substances
CPT/HCPCS: 99283

== ENCOUNTER → 2024-02-14 | Outpatient (CLI) | payer BC ==
--- NOTE | 2024-02-15 10:47 | MM ---
Reason for Exam: Screening (asymptomatic). Last mammogram was performed 1 year(s) and 2 month(s) ago. Patient History: Menarche at age 12. First Full-Term at age 25. Postmenopausal. Patient has history of breast feeding. Hormonal Contraceptives for 5 years from age 15 until age 20. 03/1987, Bilateral Reduction. Core Biopsy on the Left side. 2003, Excisional Biopsy on the Right side. 03/18/2005, Benign Stereotactic Core Biopsy on the left side. Maternal grandmother had breast cancer, age 45. Maternal aunt had breast cancer, age 56. Risk Values: Amber 5 year model risk: 2.3%. NCI Lifetime model risk: 12.2%. Prior Study Comparison: 08/16/2021 Bilateral Screening Mammogram, [facility]. 08/25/2021 Bilateral Diagnostic Mammogram, [facility]. 12/21/2022 Bilateral MG 3D screening mammo w/cad, [facility]. Tissue Density: There are scattered areas of fibroglandular density. Findings: Analyzed By CAD. Right breast: There is no suspicious group of microcalcifications or new suspicious mass. Benign-appearing calcifications right breast. Left breast: There is no suspicious group of microcalcifications or new suspicious mass. Benign-appearing calcifications left breast. Overall Assessment: Benign, BI-RAD 2 Management: Screening Mammogram of both breasts in [address] [facility] will attempt to contact patient to return for supplemental views and ultrasound if indicated. Patient should continue monthly self-breast exams. A clinical breast exam by your physician is recommended on an annual basis. This exam should not preclude additional follow-up of suspicious palpable abnormalities. Note on Amber scores and lifetime risk: 1. A Amber score greater than 3% is considered moderate risk. If this is the case, consider specialist referral to assess eligibility for a risk reducing agent. 2. If overall lifetime risk for the development of breast cancer is 20% or higher, the patient may qualify for future screening with alternating mammogram and breast MRI. Electronically signed and approved by: Butch Reynolds DO
== END | disposition home or self-care (01) ==
LOC: RADMAMWWP 12:32
PROVIDERS: ATTEND Family Medicine
DX: Z12.31 Encounter for screening mammogram for malignant neoplasm of breast (principal); Z78.0 Asymptomatic menopausal state; Z80.3 Family history of malignant neoplasm of breast
CPT/HCPCS: 77063; 77067

== ENCOUNTER → 2024-03-05 | Outpatient (CLI) | payer BC ==
--- NOTE | 2024-03-16 00:02 | XR ---
EXAMINATION TYPE: XR Hip Complete 2 views RT DATE OF EXAM: 03/05/2024 Comparison: None Clinical History: 58-year-old female M25.551 PAIN IN RIGHT HIP Findings: Some vacuum at the right SI joint may be due to early degenerative change or distraction of the joint . Mild degenerative spurring at the right hip with preservation of joint space. No acute fracture, camara bluxation, dislocation seen. Right-sided pelvic phleboliths. Impression: Mild right hip OA. No acute osseous abnormality seen.
== END | disposition home or self-care (01) ==
LOC: RADXRMAIN 12:06
PROVIDERS: ATTEND Family Medicine
DX: M16.11 Unilateral primary osteoarthritis, right hip (principal)
CPT/HCPCS: 73502

== ENCOUNTER → 2024-03-13 | Outpatient (CLI) | payer BC ==
--- NOTE | 2024-03-13 10:39 | MR ---
EXAMINATION TYPE: MR brain wo/w con DATE OF EXAM: 03/13/2024 COMPARISON: 08/13/2020 HISTORY: Meningioma, F/U comparison to prior MRI 08-13-20. TECHNIQUE: Multiplanar, multisequence images of the brain and brainstem is performed without and with IV contras t, utilizing 9 mL intravenous Gadavist . FINDINGS: Diffusion weighted images demonstrate no evidence of a recent infarct or other diffusion ab normality. There are multiple areas of abnormal signal in the white matter which are nonspecific but most typical of remote microvascular ischemia. Midline structures demonstrate normal morphology. Cere bellar tonsils are low-lying in position stable. No tonsillar beaking.. Post contrast images demonstrate 2.3 x 2.2 cm extra-axial mass within the left posterior fossa. Morris es of chronic sinusitis. The dural venous sinuses appear patent. The visualized sinuses are clear and the globes are intact. IMPRESSION: 1. Stable 2.3 x 2.2 cm left posterior fossa extra-axial mass most typical of meningioma. 2. Suspect there is a second smaller anterior interhemispheric meningioma measuring 7 x 5 mm. 3. Stable cerebellar tonsillar ectopia no tonsillar beaking. 4. Chronic sinusitis.
== END | disposition home or self-care (01) ==
LOC: RADMRIMAIN 09:47
PROVIDERS: ATTEND Family Medicine
DX: J32.9 Chronic sinusitis, unspecified (principal); D32.0 Benign neoplasm of cerebral meninges; Q04.8 Other specified congenital malformations of brain
CPT/HCPCS: 70553; A9585

== ENCOUNTER → 2024-06-12 | Outpatient (CLI) | payer BC ==
[2024-06-12 12:05] VITALS: BP 119/74; PULSE 68; RESP 16; TEMP 97.8
--- NOTE | 2024-06-12 12:19 | P.PROGSL ---
Subjective DATE: 06/12/2024 FOLLOW UP VISIT. Patient with obstructive sleep apnea hypopnea syndrome return to sleep center for follow-up visit. Information from previous visit have been reviewed. Patient is using PAP equipment every night for the whole night, getting PAP supplies in time. The patient does not have significant problems with the mask, PAP unit and humidification. [place] sleepiness scale is 4, which is normal. I checked information from PAP unit. PAP unit pressure 5-9, average 8.8 cm H2O. Usage is 98% for more then 4 hours, average 5.5 hours per night. Leak is perfect 1 l/m. Apnea Hypopnea Index is 2.2, which is normal. MEDICATIONS have been reviewed, please see below. During physical exam: GENERAL: A pleasant patient without any distress. VITAL SIGNS: Please see below, weight is 200.0 lbs. HEENT: PERRLA, EOMI.low position of soft palate, Mallapati 4 . NECK: Supple. No JVD. LUNGS: Clear to percussion and to auscultation. Good air exchange. No wheezing or rhonchi. HEART: S1, S2 regular. ABDOMEN: Soft and nontender.[] EXTREMITIES: No clubbing or cyanosis. MATERIAL SPREADER: Awake, alert, and oriented x3. No focal deficit. Impressions: 1. Obstructive sleep apnea-hypopnea syndrome. Patient demonstrated great compliance with treatment, benefiting from treatment. 2. Glaucoma. 3. History of colon cancer, status post resection. 4. Periodic limb movements by results of sleep test, no problems at the present time. 5. History of sinus problems. 6. Mild obesity, BMI 32.0, weight is about the same as during previous visit. 7. History of headaches. Plan: 1. Continue using PAP equipment every night for the whole night. 2. Sleep hygiene with regular time in bed for at least 7.5-8 hours 3. PAP unit should stay lower then position of the head. 4. Advised patient to remove all remaining water from humidifier canister daily and make it dry after each usage. Refill canister with fresh distilled water before each usage. 5. Watching and losing weight. 6. Precautions related to driving. No driving if feel any sleepiness. 7. I will maintain prescription for PAP supplies including mask, tube, filters. 8. Follow up visit in 6 months or earlier if patient has any problems. Thank you very much for allowing me to participate in the management of your patient. Jayjay Ronquillo MD, PhD, FAASM. Diplomat of [place] [employer] Sleep Medicine, Sleep Medicine Board by [place] [employer] of [employer] Medicine Servicer Travel Trailers of [facility] [place] Objective - Vital Signs Vital Signs: Vital Signs Temp 97.8 F 06/12/24 12:04 Pulse 68 06/12/24 12:04 Resp 16 06/12/24 12:04 BP 119/74 06/12/24 12:04 Pulse Ox 99 06/12/24 12:04 FiO2 Intake & Output 06/11/24 06/12/24 06/12/24 18:59 06:59 18:59 Weight 90.718 kg Home Medications: Home Medications Medication Instructions Recorded Confirmed Type Timolol 0.25% Ophth Soln [Timoptic 1 drop BOTH EYES QAM 04/10/19 06/12/24 History 0.25% Ophth Soln] Omeprazole 40 mg PO QAM 05/08/19 06/12/24 History Cholecalciferol [Vitamin D3 (25 2,000 unit PO DAILY 07/06/20 09/29/21 History Mcg = 1000 Iu)] Citalopram Hydrobromide 20 mg PO QAM 11/27/20 09/29/21 History [Citalopram HBr] Red Yeast Rice 600 mg PO DAILY 09/29/21 09/29/21 History Turmeric Root Extract [Turmeric] 1,053 mg PO DAILY 09/29/21 09/29/21 History hydroCHLOROthiazide [Hydrodiuril] 12.5 mg PO Q48H 09/29/21 09/29/21 History Chlorthalidone 25 mg PO DAILY 06/12/24 06/12/24 History FLUoxetine HCL 20 mg PO DAILY 06/12/24 06/12/24 History Levothyroxine Sodium [Synthroid] 25 mcg PO DAILY 06/12/24 06/12/24 History Rosuvastatin Calcium 10 mg PO DAILY 06/12/24 06/12/24 History
== END ==
LOC: 3 N SLEEP 11:34
PROVIDERS: ATTEND Internal Medicine
CPT/HCPCS: 99212

== ENCOUNTER → 2024-07-31 | Outpatient (CLI) | payer BC ==
--- NOTE | 2024-07-31 15:32 | XR ---
EXAMINATION TYPE: XR chest 2V DATE OF EXAM: 07/31/2024 COMPARISON: None HISTORY: 59-year-old female R05.9, cough TECHNIQUE: Frontal and lateral views FINDINGS: The cardiomediastinal silhouette, aorta, and pulmonary vasculature are within normal limits. Lungs an d pleural spaces are clear. IMPRESSION: No acute cardiopulmonary process. [facility], , 07/31/2024 3:30 PM
== END | disposition home or self-care (01) ==
LOC: RADXRMAIN 14:49
PROVIDERS: ATTEND Nurse Practitioner Family
DX: R05.9 Cough, unspecified (principal)
CPT/HCPCS: 71046

== ENCOUNTER → 2025-01-09 | Outpatient (CLI) | payer BC ==
[2025-01-09 11:40] VITALS: BP 128/82; PULSE 65; RESP 16; TEMP 98
--- NOTE | 2025-01-09 11:51 | P.PROGSL ---
Subjective Principal diagnosis: DATE: 01/09/2025 FOLLOW UP VISIT. Patient with obstructive sleep apnea hypopnea syndrome return to sleep center f or follow-up visit. Information from previous visit have been reviewed. Patient is using PAP equipment every night for the whole night, getting PAP supplies in time. The patient does not have significant problems with the mask, PAP unit and humidification. [place] sleepiness scale is 5, which is normal. I checked information from PAP unit. PAP unit pressure 5-9, average 8.7 cm H2O. Usage is 70% for more then 4 hours, average 5.9 hours per night. Leak is perfect 1 l/m. Apnea Hypopnea Index is 0.7, which is normal. MEDICATIONS have been reviewed, please see below. During physical exam: GENERAL: A pleasant patient without any distress. VITAL SIGNS: Please see below, weight is 206 lbs. HEENT: PERRLA, EOMI.low position of soft palate, Mallapati 4 . NECK: Supple. No JVD. LUNGS: Clear to percussion and to auscultation. Good air exchange. No wheezing or rhonchi. HEART: S1, S2 regular. ABDOMEN: Soft and nontender.[] EXTREMITIES: No clubbing or cyanosis. SENIOR INFORMATICA ETL DEVELOPER: Awake, alert, and oriented x3. No focal deficit. Impressions: 1. Obstructive sleep apnea-hypopnea syndrome. Patient demonstrated great compliance with treatment, benefiting from treatment. 2. Mild obesity, BMI 33.0, patient increased weight on 6 pounds comparing with previous visit. 3. History of periodic limb movements, no complaints at the present time, sleeps well. 4. History of sinus problems. 5. History of headaches. Plan: 1. Continue using PAP equipment every night for the whole night. 2. Sleep hygiene with regular time in bed for at least 7.5-8 hours 3. PAP unit should stay lower then position of the head. 4. Advised patient to remove all remaining water from humidifier canister daily and make it dry after each usage. Refill canister with fresh distilled water before each usage. 5. Watching weight. 6. Precautions related to driving. No driving if feel any sleepiness. 7. I will maintain prescription for PAP supplies including mask, tube, filters. 8. Follow up visit in 8 months or earlier if patient has any problems. Thank you very much for allowing me to participate in the management of your patient. Jayjay Ronquillo MD, PhD, FAASM. Diplomat of [place] [employer] Sleep Medicine, Sleep Medicine Board by [place] Board of [employer] Medicine Sample Taker Operator of [facility] [place] Objective - Vital Signs Vital Signs: Vital Signs Temp 98 F 01/09/25 11:39 Pulse 65 01/09/25 11:39 Resp 16 01/09/25 11:39 BP 128/82 01/09/25 11:39 Pulse Ox 98 01/09/25 11:39 FiO2 Intake & Output 01/08/25 01/09/25 01/09/25 18:59 06:59 18:59 Weight 93.44 kg Home Medications: Home Medications Medication Instructions Recorded Confirmed Type Timolol 0.25% Ophth Soln [Timoptic 1 drop BOTH EYES QAM 04/10/19 01/09/25 History 0.25% Ophth Soln] Omeprazole 40 mg PO QAM 05/08/19 01/09/25 History Cholecalciferol [Vitamin D3 (25 2,000 unit PO DAILY 07/06/20 09/29/21 History Mcg = 1000 Iu)] Citalopram Hydrobromide 20 mg PO QAM 11/27/20 09/29/21 History [Citalopram HBr] Red Yeast Rice 600 mg PO DAILY 09/29/21 09/29/21 History Turmeric Root Extract [Turmeric] 1,053 mg PO DAILY 09/29/21 09/29/21 History hydroCHLOROthiazide [Hydrodiuril] 12.5 mg PO Q48H 09/29/21 09/29/21 History Chlorthalidone 25 mg PO DAILY 06/12/24 01/09/25 History FLUoxetine HCL 20 mg PO DAILY 06/12/24 01/09/25 History Levothyroxine Sodium [Synthroid] 25 mcg PO DAILY 06/12/24 01/09/25 History Rosuvastatin Calcium 10 mg PO DAILY 06/12/24 01/09/25 History
== END ==
LOC: 3 N SLEEP 11:23
PROVIDERS: ATTEND Internal Medicine
DX: G47.33 Obstructive sleep apnea (adult) (pediatric) (principal); E66.9 Obesity, unspecified; Z68.33 Body mass index [BMI] 33.0-33.9, adult; Z86.69 Personal history of other diseases of the nervous system and sense organs; Z87.09 Personal history of other diseases of the respiratory system; Z88.1 Allergy status to other antibiotic agents; Z88.8 Allergy status to other drugs, medicaments and biological substances
CPT/HCPCS: 99212

== ENCOUNTER → 2025-03-26 | Outpatient (CLI) | payer BC ==
--- NOTE | 2025-03-26 11:33 | MM ---
Reason for Exam: Screening (asymptomatic). Last mammogram was performed 1 year(s) and 1 month(s) ago. Patient History: Menarche at age 12. First Full-Term at age 25. Postmenopausal. Patient has history of breast feeding. Hormonal Contraceptives for 5 years from age 15 until age 20. 03/1987, Bilateral Reduction. Core Biopsy on the Left side. 2003, Excisional Biopsy on the Right side. 03/18/2005, Benign Stereotactic Core Biopsy on the left side. Maternal grandmother had breast cancer, age 45. Maternal aunt had breast cancer, age 56. Risk Values: Amber 5 year model risk: 2.4%. NCI Lifetime model risk: 11.9%. Prior Study Comparison: 08/25/2021 Bilateral Diagnostic Mammogram, [facility]. 12/21/2022 Bilateral MG 3D screening mammo w/cad, [facility]. 02/14/2024 Bilateral MG 3D screening mammo w/cad, [facility]. Tissue Density: There are scattered areas of fibroglandular density. Findings: Analyzed By CAD. Left breast biopsy clip. Right breast: There is no suspicious group of microcalcifications or new suspicious mass. Benign-appearing calcifications right breast. Left breast: There is no suspicious group of microcalcifications or new suspicious mass. Benign-appearing calcifications left breast. Overall Assessment: Benign, BI-RAD 2 Management: Screening Mammogram of both breasts in [address] [facility] will attempt to contact patient to return for supplemental views and ultrasound if indicated. Patient should continue monthly self-breast exams. A clinical breast exam by your physician is recommended on an annual basis. This exam should not preclude additional follow-up of suspicious palpable abnormalities. Note on Amber scores and lifetime risk: 1. A Amber score greater than 3% is considered moderate risk. If this is the case, consider specialist referral to assess eligibility for a risk reducing agent. 2. If overall lifetime risk for the development of breast cancer is 20% or higher, the patient may qualify for future screening with alternating mammogram and breast MRI. [facility], , 03/26/2025 10:38 AM. Electronically signed and approved by: Butch Reynolds DO
== END | disposition home or self-care (01) ==
LOC: RADMAMWWP 08:42
PROVIDERS: ATTEND Family Medicine
DX: Z12.31 Encounter for screening mammogram for malignant neoplasm of breast (principal); R92.323 Mammographic fibroglandular density, bilateral breasts; Z78.0 Asymptomatic menopausal state; Z80.3 Family history of malignant neoplasm of breast; Z92.0 Personal history of contraception
CPT/HCPCS: 77063; 77067